=== PATIENT | female | born 1995 | race Caucasian/White ===

== ENCOUNTER 2017-04-16 15:18 | Emergency (ER) | payer SELFPAY ==
--- NOTE | 2017-04-16 15:32 | UC ---
Knee Pain HPI - HPI Summary HPI Summary: Pt presents with right knee pain, bruising, and swelling. She tells me that yesterday she was at a farm animal auction and one of the day escaped it's containment and headbutted her in the front of her right knee. She flipped over the animal and landed on her backside. She had immediate pain, but was able to walk. She took ibuprofen later that night with mild relief. She is here today with increased pain, swelling, and bruising. Denies fever, chills, numbness, tingling, or loss of sensation. - History of Current Complaint Stated Complaint: KNEE INJURY Hx Obtained From: Patient Hx Last Menstrual Period: 04/03/14 ?: No Onset/Duration: Sudden Onset Severity Initially: Moderate Severity Currently: Moderate Pain Intensity: 2 Pain Scale Used: 0-10 Numeric Character: Dull, Aching, Throbbing, Stiffness Aggravating Factor(s): Movement, Weight Bearing Alleviating Factor(s): Rest Associated Signs And Symptoms: Positive: Swelling, Bruising - Allergies/Home Medications Allergies/Adverse Reactions: Allergies Allergy/AdvReac Type Severity Reaction Status Date / Time strawberries Allergy Severe Hives Uncoded 04/16/17 15:41 coconut Allergy Hives Uncoded 04/16/17 15:41 PMH/Surg Hx/FS Hx/Imm Hx Previously Healthy: Yes Other History Of: Negative For: Anticoagulant Therapy - Surgical History Surgical History: None - Family History Known Family History: Positive: Unknown - Social History Occupation: Employed Full-time Lives: With Family Alcohol Use: None Substance Use Type: None Smoking Status (MU): Former Smoker Have You Smoked in the Last Year: No - Immunization History Most Recent Influenza Vaccination: none Most Recent Tetanus Shot: received as child Most Recent Pneumonia Vaccination: none Vaccination Up to Date: Yes Review of Systems Constitutional: Negative Skin: Bruising - Right knee Respiratory: Negative Cardiovascular: Negative Gastrointestinal: Negative Motor: Negative Neurovascular: Negative Musculoskeletal: Decreased ROM - Right knee, Edema - Right knee, Other: - Pain right knee Neurological: Negative Psychological: Negative All Other Systems Reviewed And Are Negative: Yes Physical Exam Triage Information Reviewed: Yes Appearance: Well-Appearing, Well-Nourished Vital Signs Reviewed: Yes Neck: Positive: Supple, Nontender, No Lymphadenopathy, Other: - FROM Cardiovascular: Positive: RRR, No Murmur, Pulses Normal, Brisk Capillary Refill Musculoskeletal: Positive: Strength Limited @ - Right knee due to pain., ROM Limited @ - Right knee due to pain. She is able to flex and extend fully, but with significant pain at full extension/flexion., Edema @ - Right knee moderate generalized around the knee joint., Other: - Right knee TTP all around the joint , most painful at the anterior inferior aspect of the joint line and posteriorly. No obvious bony deformities. No patella apprehension. Negative Alexandra, A/P drawer, Karo, and varus/valgus stress. FROM right hip and ankle without pain. Neurological: Positive: Alert, Other: - L3-S1 sensations intact. Psychological: Positive: Age Appropriate Behavior Skin: Positive: Other - Ecchymosis at the medial and lateral right knee joint line. No open wounds or lacerations. Knee Pain Course/Dx - Course Course Of Treatment: Knee XR: IMPRESSION: SMALL JOINT EFFUSION, NO FRACTURE IS SEEN. iSTOP checked and ok'd. Prior to imaging study, a test was offered and potential risks to a fetus were discussed - pt declined test. Toradol IM in clinic today. Rx for norco 3 days. Knee immobilizer and f/ u with orthopedics this week regarding traumatic impact injury. - Differential Dx/Diagnosis Differential Diagnosis/HQI/PQRI: Contusion, Dislocation, Fracture (Closed), Sprain, Strain Provider Diagnoses: Right knee contusion Discharge - Discharge Plan Condition: Stable Disposition: HOME Prescriptions: Hydrocodone-Acetaminophen [[place] 5-325 mg] 1 tab PO Q6HR PRN #12 tab MDD 4 PRN Reason: Pain Patient Education Materials: Knee Pain (ED) Forms: *Work Release Referrals: Krysten Paredes RN [Primary Care Provider] - Lars Haines MD [Medical Doctor] - As Soon As Possible Additional Instructions: If you develop a fever, SOB, chest pain, new or worsening symptoms - please call your PCP or go to the ED. 1) Rest, Ice, and Elevate your knee as much as possible over the next 2-3 days. 2) Please call orthopedics at the number below to schedule a follow up appointment for sometime this week. 3) When active or when walking, please be in the knee immobilizer. May remove the immobilizer when sleeping at night.
[2017-04-16 15:41] VITALS: BP 119/72
--- NOTE | 2017-04-16 16:01 | RAD ---
INDICATION: Right knee injury. TECHNIQUE: 4 views of the right knee were obtained. FINDINGS: The bones are in normal alignment. There is a small joint effusion present. No fracture is seen. Joint spaces appear maintained. IMPRESSION: SMALL JOINT EFFUSION, NO FRACTURE IS SEEN.
[2017-04-16] MEDS ORDERED: Ketorolac INJ* 30 MG/ML 1 ML VIAL IM ONE (16:11)
== END 2017-04-16 16:35 | disposition home or self-care (01) ==
LOC: UCEAST 15:18
DX: S80.01XA Contusion of right knee, initial encounter (principal); W55.32XA Struck by other hoof stock, initial encounter; Y92.89 Other specified places as the place of occurrence of the external cause; M25.461 Effusion, right knee; Z87.891 Personal history of nicotine dependence
CPT/HCPCS: 96372; 99213; G0463; J1885

== ENCOUNTER 2017-04-21 11:44 | Emergency (ER) | payer OTHER ==
[2017-04-21 13:03] VITALS: BP 105/56
--- NOTE | 2017-04-21 13:18 | UC ---
Knee Pain HPI - HPI Summary HPI Summary: Pt presents with continued right knee pain. I first saw the patient on 04/16 for her right knee injury. HPI from visit 04/16: Pt presents with right knee pain, bruising, and swelling. She tells me that yesterday she was at a farm animal auction and one of the day escaped it's containment and headbutted her in the front of her right knee. She flipped over the animal and landed on her backside. She had immediate pain, but was able to walk. She took ibuprofen later that night with mild relief. She is here today with increased pain, swelling, and bruising. Denies fever, chills, numbness, tingling, or loss of sensation. Today: She tells me that she was able to see Orthopedics and they ordered an MRI , but due to her worker's comp - the MRI will likely not be scheduled until after [place]. According to her, ortho suspects ligament damage and want to keep her in the knee immobilizer until the MRI. She is doing well, but is having continued pain and difficulties sleeping due to pain. She wanted to speak to orthopedics about pain control, but she said the visit was so short and the provider did not give her the opportunity to do so. She is currently taking ibuprofen with minimal relief. - History of Current Complaint Chief Complaint: UCLowerExtremity Stated Complaint: KNEE INJURY Time Seen by Provider: 04/21/17 12:57 Hx Obtained From: Patient Hx Last Menstrual Period: 04/03/14 Onset/Duration: Still Present Severity Initially: Severe Severity Currently: Moderate Pain Intensity: 7 Pain Scale Used: 0-10 Numeric Character: Dull, Aching, Throbbing, Stiffness Able to Bear Weight: No - Allergies/Home Medications Allergies/Adverse Reactions: Allergies Allergy/AdvReac Type Severity Reaction Status Date / Time strawberries Allergy Severe Hives Uncoded 04/21/17 13:03 coconut Allergy Hives Uncoded 04/21/17 13:03 PMH/Surg Hx/FS Hx/Imm Hx Previously Healthy: Yes Other History Of: Negative For: Anticoagulant Therapy - Surgical History Surgical History: None Surgery Procedure, Year, and Place: c - section 2015 - Family History Known Family History: Positive: Unknown - Social History Alcohol Use: None Substance Use Type: None Smoking Status (MU): Former Smoker Have You Smoked in the Last Year: No - Immunization History Most Recent Influenza Vaccination: none Most Recent Tetanus Shot: received as child Most Recent Pneumonia Vaccination: none Vaccination Up to Date: Yes Review of Systems Constitutional: Negative Skin: Negative Respiratory: Negative Cardiovascular: Negative Musculoskeletal: Decreased ROM - Right knee. Pt is in knee immobilizer., Other: - Right knee pain Neurological: Negative Psychological: Negative All Other Systems Reviewed And Are Negative: Yes Physical Exam Triage Information Reviewed: Yes Appearance: Well-Appearing, Well-Nourished Vital Signs: Initial Vital Signs Temp 98.6 F 04/21/17 12:57 Pulse 83 04/21/17 12:57 Resp 18 04/21/17 12:57 BP 105/56 04/21/17 12:57 Pulse Ox 98 04/21/17 12:57 Vital Signs Reviewed: Yes Respiratory: Positive: Chest non-tender, Lungs clear, Normal breath sounds, No respiratory distress, No accessory muscle use Cardiovascular: Positive: RRR, No Murmur, Pulses Normal, Brisk Capillary Refill - Right LE Musculoskeletal: Positive: No Edema, ROM Limited @ - Right knee due to knee immobilizer, Other: - Right knee pain posterior and anterior joint line. Unable to perform specialized tests due to knee immobilizer. Neurological: Positive: Alert, Other: - Sensations intact b/l LEs Knee Pain Course/Dx - Course Course Of Treatment: Right knee pain s/p trauma. She is followed by orthopedics and has an upcoming MRI. Continued pain - discussed no more narcotics. Will try diclofenac during the day and flexeril at bedtime. - Differential Dx/Diagnosis Differential Diagnosis/HQI/PQRI: Contusion, Internal Derangement Of Knee, Sprain , Strain Provider Diagnoses: Right knee pain s/p trauma Discharge - Discharge Plan Condition: Stable Disposition: HOME Prescriptions: Cyclobenzaprine HCl [Flexeril 5 mg (NF)] 5 mg PO BEDTIME PRN #7 tab PRN Reason: Pain Diclofenac Sodium EC TAB* [Voltaren EC TAB*] 50 mg PO TID PRN #60 tab.ec PRN Reason: Pain Patient Education Materials: Knee Immobilizer (ED) Referrals: Krysten Paredes RN [Primary Care Provider] - Additional Instructions: If you develop a fever, SOB, chest pain, new or worsening symptoms - please call your PCP or go to the ED. 1) Please keep scheduled follow ups with Orthopedics and your MRI for continued evaluation and treatment.
[2017-04-21] MEDS ORDERED: Ketorolac INJ* 30 MG/ML 1 ML VIAL IM ONE (13:34)
== END 2017-04-21 14:09 | disposition home or self-care (01) ==
LOC: UCEAST 11:44
DX: M25.561 Pain in right knee (principal); W55.32XA Struck by other hoof stock, initial encounter; Y93.89 Activity, other specified; Y92.79 Other farm location as the place of occurrence of the external cause; Y99.9 Unspecified external cause status; Z87.892 Personal history of anaphylaxis
CPT/HCPCS: 96372; 99212; G0463; J1885

== ENCOUNTER 2017-05-30 03:13 | Emergency (ER) | payer SELFPAY ==
[2017-05-30] MEDS ORDERED: Morphine INJ* 4 MG/ML 1 ML CARPUJECT IV ONE (03:55)
[2017-05-30] MEDS ORDERED: Ondansetron INJ* 2 MG/ML VIAL IV ONE (03:55)
[2017-05-30] MEDS ORDERED: NS 0.9% 1000 ML* 1,000 ML IV ONE (03:55)
[2017-05-30 04:20] LABS: ABS Basophils 0 10^3/ul (0-0.2); ABS Eosinophils 0.1 10^3/ul (0-0.6); ABS Lymphocytes 1.3 10^3/ul (1.0-4.8); ABS Monocytes 0.8 10^3/ul (0-0.8); ABS Neutrophils 5.1 10^3/ul (1.5-7.7); ABS Nucleated RBC 0 10^3/ul; Eosinophil % 0.8 % (0-6); Hematocrit 36 % (35-47); Hemoglobin 12.2 g/dl (12.0-16.0); Lymphocyte % 17.7 % (25-47); Mean Corpuscular HGB Conc 34 g/dl (31-36); Mean Corpuscular Hemoglobin 30 pg (27-31); Mean Corpuscular Volume 89 fL (80-97); Mean Platelet Volume 8 um3 (7.4-10.4); Nucleated Red Blood Cells % 0; Platelet Count 207 10^3/ul (150-450); Red Blood Count 4.07 10^6/ul (4.0-5.4); Red Cell Distribution Width 17 % (10.5-15); White Blood Count 7.3 10^3/ul (3.5-10.8)
[2017-05-30 05:03] LABS: Urine Appearance Cloudy; Urine Blood Negative (Negative); Urine Color Yellow; Urine Ketones Negative (Negative); Urine Protein Negative (Negative); Urine Specific Gravity 1.014 (1.010-1.030); Urine Urobilinogen Negative (Negative)
[2017-05-30 05:26] LABS: EGFR Non-African American 99.1 (>60)
[2017-05-30] MEDS ORDERED: Iohexol 300* (CONTRAST) 10 ML SDV IV ONE (05:31)
--- NOTE | 2017-05-30 06:48 | ED ---
Kunal Kemp Julia, scribed for Fernando Alexander MD on 05/30/17 at 0344 . Abdominal Pain/Female - HPI Summary HPI Summary: This patient is a 22 year [facility] F [facility] constant worsening sharp stabbing R sided abdominal pain since 8:00 05/29/17. Pt reports nausea and vomiting. Patient denies vaginal symptoms. The patient rates the pain 8/10 in severity. Symptoms aggravated by movement and coughing. Pts LNMP was 05/06/17. - History of Current Complaint Chief Complaint: EDAbdPain Stated Complaint: ABD PAIN Time Seen by Provider: 05/30/17 03:35 Hx Obtained From: Patient Hx Last Menstrual Period: 05/06/17 Onset/Duration: Gradual Onset, Lasting Days Timing: Constant Pain Intensity: 8 Pain Scale Used: 0-10 Numeric Location: Discrete At: RUQ, Discrete At: RLQ Character: Sharp Aggravating Factor(s): Movement, Other: Associated Signs and Symptoms: Positive: Nausea, Vomiting. Negative: Vaginal Discharge Allergies/Adverse Reactions: Allergies Allergy/AdvReac Type Severity Reaction Status Date / Time strawberries Allergy Severe Hives Uncoded 05/30/17 03:18 coconut Allergy Hives Uncoded 05/30/17 03:18 PMH/Surg Hx/FS Hx/Imm Hx Endocrine/Hematology History: Denies: Hx Anticoagulant Therapy, Hx Diabetes, Hx Thyroid Disease Cardiovascular History: Reports: Other Cardiovascular Problems/Disorders - hr irr Denies: Hx Hypertension Respiratory History: Reports: Other Respiratory Problems/Disorders - hx of previous anaphylaxis Denies: Hx Asthma, Hx Chronic Obstructive Pulmonary Disease (COPD) GI History: Denies: Hx Ulcer Sensory History: Reports: Hx Contacts or Glasses Opthamlomology History: Reports: Hx Contacts or Glasses - Surgical History Surgery Procedure, Year, and Place: c - section 2015 Infectious Disease History: No Infectious Disease History: Denies: Hx Clostridium Difficile, Hx Hepatitis, Hx Human Immunodeficiency Virus (HIV), Hx of Known/Suspected MRSA, Hx Shingles, Hx Tuberculosis, Hx Known/ Suspected VRE, Hx Known/Suspected VRSA, History Other Infectious Disease, Traveled Outside the [place] in Last 30 Days - Family History Known Family History: Positive: Diabetes - borderline mother, Other - negative CA - Social History Alcohol Use: None Substance Use Type: Reports: None Smoking Status (MU): Former Smoker Have You Smoked in the Last Year: No Review of Systems Positive: Abdominal Pain, Vomiting, Nausea Positive: no symptoms reported All Other Systems Reviewed And Are Negative: Yes Physical Exam - Summary Physical Exam Summary: Appearance: Well appearing, no pain distress Skin: warm, dry, reflects adequate perfusion Head/face: normal Eyes: EOMI, GEOVANNA ENT: normal Neck: supple, non-tender Respiratory: CTA, breath sounds present Cardiovascular: RRR, pulses symmetrical Abdomen: non-tender, soft, positive [place] Bowel: present Musculoskeletal: strength/ROM intact, positive psoas, positive obturator Neuro: normal, sensory motor intact, A&Ox3 Triage Information Reviewed: Yes Vital Signs On Initial Exam: Initial Vitals Temp Pulse Resp BP Pulse Ox 98.0 F 88 16 121/72 98 05/30/17 03:15 05/30/17 03:15 05/30/17 03:15 05/30/17 03:15 05/30/17 03:15 Vital Signs Reviewed: Yes Diagnostics - Vital Signs Vital Signs Temp Pulse Resp BP Pulse Ox 05/30/17 03:15 98.0 F 88 16 121/72 98 - Laboratory Lab Results: Lab Results 05/30/17 05/30/17 05/30/17 Range/Units 04:01 04:01 04:01 WBC 7.3 (3.5-10.8) 10^3/ul RBC 4.07 (4.0-5.4) 10^6/ul Hgb 12.2 (12.0-16.0) g/dl Hct 36 (35-47) % MCV 89 (80-97) fL MCH 30 (27-31) pg MCHC 34 (31-36) g/dl RDW 17 H (10.5-15) % Plt Count 207 (150-450) 10^3/ul MPV 8 (7.4-10.4) um3 Neut % (Auto) 70.4 (38-83) % Lymph % (Auto) 17.7 L (25-47) % Kern % (Auto) 10.5 H (1-9) % Eos % (Auto) 0.8 (0-6) % Baso % (Auto) 0.6 (0-2) % Absolute Neuts (auto) 5.1 (1.5-7.7) 10^3/ul Absolute Lymphs (auto) 1.3 (1.0-4.8) 10^3/ul Absolute Monos (auto) 0.8 (0-0.8) 10^3/ul Absolute Eos (auto) 0.1 (0-0.6) 10^3/ul Absolute Basos (auto) 0 (0-0.2) 10^3/ul Absolute Nucleated RBC 0 10^3/ul Nucleated RBC % 0 Sodium 135 (133-145) mmol/L Potassium 3.9 (3.5-5.0) mmol/L Chloride 105 (101-111) mmol/L Carbon Dioxide 22 (22-32) mmol/L Anion Gap 8 (2-11) mmol/L BUN 20 (6-24) mg/dL Creatinine 0.74 (0.51-0.95) mg/dL Est GFR ( Amer) 127.4 (>60) Est GFR (Non-Af Amer) 99.1 (>60) BUN/Creatinine Ratio 27.0 H (8-20) Glucose 89 (70-100) mg/dL Lactic Acid 0.4 L (0.5-2.0) mmol/L Calcium 9.3 (8.6-10.3) mg/dL Total Bilirubin 0.30 (0.2-1.0) mg/dL AST 14 (13-39) U/L ALT 11 (7-52) U/L Alkaline Phosphatase 32 L (34-104) U/L C-Reactive Protein 12.01 H (< 5.00) mg/L Total Protein 6.9 (6.4-8.9) g/dL Albumin 3.9 (3.2-5.2) g/dL Globulin 3.0 (2-4) g/dL Albumin/Globulin Ratio 1.3 (1-3) Lipase 13 (11.0-82.0) U/L Beta HCG, Quant < 0.60 mIU/mL Urine Color Urine Appearance Urine pH (5-9) Ur Specific [place] (1.010-1.030) Urine Protein (Negative) Urine Ketones (Negative) Urine Blood (Negative) Urine Nitrate (Negative) Urine Bilirubin (Negative) Urine Urobilinogen (Negative) Ur Leukocyte Esterase (Negative) Urine WBC (Auto) (Absent) Urine RBC (Auto) (Absent) Ur Squamous Epith Cells (Absent) Urine Bacteria (Absent) Urine Glucose (Negative) 05/30/17 Range/Units 04:35 WBC (3.5-10.8) 10^3/ul RBC (4.0-5.4) 10^6/ul Hgb (12.0-16.0) g/dl Hct (35-47) % MCV (80-97) fL MCH (27-31) pg MCHC (31-36) g/dl RDW (10.5-15) % Plt Count (150-450) 10^3/ul MPV (7.4-10.4) um3 Neut % (Auto) (38-83) % Lymph % (Auto) (25-47) % Kern % (Auto) (1-9) % Eos % (Auto) (0-6) % Baso % (Auto) (0-2) % Absolute Neuts (auto) (1.5-7.7) 10^3/ul Absolute Lymphs (auto) (1.0-4.8) 10^3/ul Absolute Monos (auto) (0-0.8) 10^3/ul Absolute Eos (auto) (0-0.6) 10^3/ul Absolute Basos (auto) (0-0.2) 10^3/ul Absolute Nucleated RBC 10^3/ul Nucleated RBC % Sodium (133-145) mmol/L Potassium (3.5-5.0) mmol/L Chloride (101-111) mmol/L Carbon Dioxide (22-32) mmol/L Anion Gap (2-11) mmol/L BUN (6-24) mg/dL Creatinine (0.51-0.95) mg/dL Est GFR ( Amer) (>60) Est GFR (Non-Af Amer) (>60) BUN/Creatinine Ratio (8-20) Glucose (70-100) mg/dL Lactic Acid (0.5-2.0) mmol/L Calcium (8.6-10.3) mg/dL Total Bilirubin (0.2-1.0) mg/dL AST (13-39) U/L ALT (7-52) U/L Alkaline Phosphatase (34-104) U/L C-Reactive Protein (< 5.00) mg/L Total Protein (6.4-8.9) g/dL Albumin (3.2-5.2) g/dL Globulin (2-4) g/dL Albumin/Globulin Ratio (1-3) Lipase (11.0-82.0) U/L Beta HCG, Quant mIU/mL Urine Color Yellow Urine Appearance Cloudy Urine pH 6.0 (5-9) Ur Specific [place] 1.014 (1.010-1.030) Urine Protein Negative (Negative) Urine Ketones Negative (Negative) Urine Blood Negative (Negative) Urine Nitrate Negative (Negative) Urine Bilirubin Negative (Negative) Urine Urobilinogen Negative (Negative) Ur Leukocyte Esterase 1+ H (Negative) Urine WBC (Auto) 3+(>20/hpf) H (Absent) Urine RBC (Auto) Trace(0-2/hpf) (Absent) Ur Squamous Epith Cells Present H (Absent) Urine Bacteria Absent (Absent) Urine Glucose Negative (Negative) Result Diagrams: 05/30/17 04:01 05/30/17 04:01 Lab Statement: Any lab studies that have been ordered have been reviewed, and results considered in the medical decision making process. - CT A/P CT Interpretation Completed By: Radiologist - Unremarkable except mild spleen enlargement. ED Physician has reviewed this report. Re-Evaluation - Re-Evaluation 1 Re-Evaluation Time: 06:41 Change: Improved - Pain is gone. Re examination reveals no tenderness Comment: pain gone, on reexam there is no tenderness. Abdominal Pain Fem Course/Dx - Course Course Of Treatment: Patient presents with gradually worsening R sided abdominal pain, nausea and vomiting. A A/P CT reveals no acute findings except mild spleen enlargement. Labs are unremarkable. Pt given Morphine, Zofran, and IV fluids. Upon second examination pain has resolved with no abdominal tenderness. She moves about freely. On my eval of the CT there is some term ileum fluids adjacent to a lot of stool in the prox large bowel. F/U closely PMD , tx symptomatically. No pelvic pain. - Diagnoses Differential Diagnosis: Positive: Appendicitis, Irritable Bowel Syndrome, Ovarian Cyst, Other - IBD Provider Diagnoses: Acute abdominal pain in right lower quadrant, Acute constipation Discharge - Discharge Plan Condition: Good Disposition: HOME Prescriptions: Bisacodyl SUPP* [Dulcolax Supp*] 10 mg PO BID PRN #10 supp PRN Reason: Constipation Hyoscyamine TAB* [Anaspaz 0.125 MG TAB*] 0.125 mg PO Q6H PRN #20 tab PRN Reason: cramping Ondansetron HCl [Zofran 4 MG TAB] 4 mg PO TID PRN #12 tab PRN Reason: Nausea Polyethylene Glycol 3350* [Miralax*] 17 gm PO TID #20 packet Patient Education Materials: Constipation (ED), Acute Abdominal Pain (ED) Referrals: Adolph DALY LARDER COOKKrysten [Primary Care Provider] - Additional Instructions: Drink plenty of fluids, high fiber diet. Return with fever, increased pain, vomiting or other concerns as discussed. Call your doctor to follow up today. The documentation as recorded by the Kunal longoria Julia accurately reflects the service I personally performed and the decisions made by me, Fernando Alexander MD.
[2017-05-30 07:05] VITALS: BP 102/51
--- NOTE | 2017-05-30 07:51 | RAD ---
CLINICAL HISTORY: Right lower quadrant pain COMPARISON: April 11, 2014 TECHNIQUE: Multiple contiguous axial CT scans were obtained of the abdomen and pelvis after the administration of intravenous contrast. Coronal and sagittal multiplanar reformations are submitted for review. Oral contrast was not administered. Delayed images were obtained through the abdomen and pelvis. FINDINGS: LUNG BASES: The lung bases are clear. LIVER: There is focal fatty infiltration along the ligamentum teres hepatis. BILE DUCTS: There is no intrahepatic or extrahepatic biliary dilatation. GALLBLADDER: The gallbladder is normal, without pericholecystic inflammatory change. PANCREAS: The pancreas is normal, without mass or ductal dilatation. SPLEEN: The spleen measures up to 14.6 cm in long axis. UPPER GI TRACT: Evaluation of the gastrointestinal tract is limited by incomplete gastric distention. The upper GI tract is unremarkable. SMALL BOWEL AND MESENTERY: The small bowel is normal in contour, course, and caliber. There is no obstruction or dilatation. COLON: The colon is normal in contour, course, caliber. There is no pericolonic inflammatory change. There is a tubular, vermiform, hollow viscus that is blind ending, and originates from the cecum, consistent with a normal appendix. There is no periappendiceal inflammatory change. This is best seen on axial images 61 through 66. ADRENALS: Normal bilaterally. KIDNEYS: The kidneys are normal in shape, size, contour, and axis. There is no hydronephrosis or nephrolithiasis. BLADDER: The bladder is smooth in contour. PELVIC ORGANS: The uterus and adnexa are grossly normal for technique. AORTA: The aorta is normal. IVC: Unremarkable LYMPH NODES: There is no lymphadenopathy by size criteria. ABDOMINAL WALL: There is no evidence for abdominal wall hernia. BONES AND SOFT TISSUES: The bones and soft tissues are unremarkable. OTHER: None IMPRESSION: 1. NORMAL APPENDIX. 2. MILD SPLENOMEGALY. 3. NO ACUTE CT PATHOLOGY OF THE VISUALIZED ABDOMEN OR PELVIS.
--- NOTE | 2017-06-01 10:50 | PN ---
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 Aye Coel PA-C
== END 2017-05-30 07:07 | disposition home or self-care (01) ==
LOC: ED 03:13
DX: R10.31 Right lower quadrant pain (principal); K59.00 Constipation, unspecified; N39.0 Urinary tract infection, site not specified; B95.7 Other staphylococcus as the cause of diseases classified elsewhere; Z87.891 Personal history of nicotine dependence
CPT/HCPCS: 36415; 74177; 80053; 81003; 81015; 83605; 83690; 84702; 85025; 86140; 87077; 87086; 96361; 96365; 96375; 99284; J2270; J2405; Q9967

== ENCOUNTER 2017-07-18 18:27 | Emergency (ER) | payer SELFPAY ==
[2017-07-18 18:45] VITALS: BP 122/71
--- NOTE | 2017-07-18 19:43 | UC ---
Skin Complaint HPI - HPI Summary HPI Summary: 22 yo WF c/o left inner upper thigh vesicular skin lesion associated with fatigue, pain and tingling on before the lesions were noted this morning - History of Current Complaint Chief Complaint: UCSkin Time Seen by Provider: 07/18/17 19:02 Stated Complaint: SKIN COMPLAINT Hx Obtained From: Patient Hx Last Menstrual Period: 2 wks ago Onset/Duration: Sudden Onset Skin Exposure Onset/Duration: Days Ago Onset Severity: Severe Current Severity: Moderate Pain Intensity: 8 - Allergy/Home Medications Allergies/Adverse Reactions: Allergies Allergy/AdvReac Type Severity Reaction Status Date / Time strawberries Allergy Severe Hives Uncoded 07/18/17 18:45 coconut Allergy Hives Uncoded 07/18/17 18:45 Review of Systems Constitutional: Negative Skin: Rash Eyes: Negative ENT: Negative Respiratory: Negative Cardiovascular: Negative Gastrointestinal: Negative Genitourinary: Negative Motor: Negative Neurovascular: Negative Musculoskeletal: Negative Neurological: Negative Psychological: Negative All Other Systems Reviewed And Are Negative: Yes PMH/Surg Hx/FS Hx/Imm Hx Previously Healthy: Yes Other History Of: Negative For: Anticoagulant Therapy - Surgical History Surgical History: Yes Surgery Procedure, Year, and Place: c - section 2015 - Family History Known Family History: Positive: Unknown, Diabetes - borderline mother, Other - negative [place] - Social History Alcohol Use: None Substance Use Type: None Smoking Status (MU): Light Every Day Tobacco Smoker Have You Smoked in the Last Year: No - Immunization History Most Recent Influenza Vaccination: none Most Recent Tetanus Shot: received as child Most Recent Pneumonia Vaccination: none Vaccination Up to Date: Yes Physical Exam Triage Information Reviewed: Yes Vital Signs: Initial Vital Signs Temp 37.2 C 07/18/17 18:42 Pulse 106 07/18/17 18:42 Resp 12 07/18/17 18:42 BP 122/71 07/18/17 18:42 Pulse Ox 100 07/18/17 18:42 Eye Exam: Normal ENT Exam: Normal Dental Exam: Normal Neck exam: Normal Neck: Positive: 1 Respiratory Exam: Normal Cardiovascular Exam: Normal Abdominal Exam: Normal Musculoskeletal Exam: Normal Neurological Exam: Normal Psychological Exam: Normal Skin: Positive: significant lesion(s) - small group of 1x1cm vesicular lesion on left upper inner thigh along L2 dermatome Course/Dx - Diagnoses Provider Diagnoses: herpes zoster Discharge - Discharge Plan Condition: Stable Disposition: HOME Prescriptions: ValACYclovir (*) [Valtrex 1 GM(*)] 1 gm PO TID 7 Days #21 tab Patient Education Materials: Arlene (ED) Forms: *Work Release Referrals: Adolph DALY VET TECHKrysten [Primary Care Provider] - Additional Instructions: Take medication as directed Hydrate Tylenol or motrin for pain
== END 2017-07-18 19:57 | disposition home or self-care (01) ==
LOC: UCEAST 18:27
DX: B02.9 Zoster without complications (principal); F17.200 Nicotine dependence, unspecified, uncomplicated
CPT/HCPCS: 99212; G0463

== ENCOUNTER 2017-11-24 17:15 | Emergency (ER) | payer SELFPAY ==
[2017-11-24 17:52] VITALS: BP 118/82
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
[2017-11-24] MEDS ORDERED: NS 0.9% 1000 ML* 1,000 ML IV ONE (18:33)
== END 2017-11-24 18:58 | disposition short-term general hospital (02) ==
LOC: UCEAST 17:15
DX: R10.12 Left upper quadrant pain (principal); M54.2 Cervicalgia; M54.6 Pain in thoracic spine; Z88.4 Allergy status to anesthetic agent; Z91.018 Allergy to other foods; F17.200 Nicotine dependence, unspecified, uncomplicated
CPT/HCPCS: 96360; 99213; G0463

== ENCOUNTER 2017-11-24 19:36 | Emergency (ER) | payer SELFPAY ==
[2017-11-24] MEDS ORDERED: NS 0.9% 1000 ML* 1,000 ML IV ONE (19:57)
[2017-11-24] MEDS ORDERED: Iodixanol* (CONTRAST) 320 MG/ML 100 ML SDV IV ONE (20:12)
[2017-11-24 20:20] LABS: ABS Basophils 0 10^3/ul (0-0.2); ABS Eosinophils 0.1 10^3/ul (0-0.6); ABS Lymphocytes 1.6 10^3/ul (1.0-4.8); ABS Monocytes 0.4 10^3/ul (0-0.8); ABS Neutrophils 2.4 10^3/ul (1.5-7.7); ABS Nucleated RBC 0 10^3/ul; Eosinophil % 1.4 % (0-6); Hematocrit 36 % (35-47); Hemoglobin 12.2 g/dl (12.0-16.0); Lymphocyte % 35.7 % (25-47); Mean Corpuscular HGB Conc 34 g/dl (31-36); Mean Corpuscular Hemoglobin 31 pg (27-31); Mean Corpuscular Volume 90 fL (80-97); Mean Platelet Volume 7.9 um3 (7.4-10.4); Nucleated Red Blood Cells % 0.1; Platelet Count 224 10^3/ul (150-450); Red Blood Count 3.98 10^6/ul (4.00-5.40); Red Cell Distribution Width 16 % (10.5-15); White Blood Count 4.5 10^3/ul (3.5-10.8)
[2017-11-24 20:30] LABS: EGFR Non-African American 111.1 (>60)
[2017-11-24] MEDS ORDERED: Potassium Chlor TAB* 20 MEQ TAB.ER PO ONE (20:51)
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
[2017-11-24] MEDS ORDERED: Ketorolac INJ* 30 MG/ML 1 ML VIAL IV PUSH ONE (21:06)
[2017-11-24 21:33] VITALS: BP 120/78
--- NOTE | 2017-11-25 07:38 | RAD ---
INDICATION: Headaches. Possible intracranial injury COMPARISON: None TECHNIQUE: Noncontrast axial source images were acquired from the skull base to the vertex. FINDINGS: Ventricles/sulci: The ventricles and cisterns are normal in size and configuration for age. Brain parenchyma: There is no focal parenchymal finding, evidence of intracranial mass, or intracranial mass effect. Intracranial hemorrhage:None. Extra-axial spaces: There are no abnormal extra axial fluid collections or evidence of extra-axial mass. Calvarium: There is no calvarial fracture or other calvarial abnormality. Scalp: There is no evidence of scalp or extracalvarial soft tissue abnormality. Paranasal sinuses/mastoid: The paranasal sinuses and mastoid air cells are clear. Other: None. IMPRESSION: NEGATIVE EXAMINATION
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
== END 2017-11-24 21:32 | disposition home or self-care (01) ==
LOC: ED 19:36
DX: R51 Headache (principal); R07.9 Chest pain, unspecified; R10.9 Unspecified abdominal pain; F17.210 Nicotine dependence, cigarettes, uncomplicated; M54.9 Dorsalgia, unspecified; M25.519 Pain in unspecified shoulder; V89.0XXA Person injured in unspecified motor-vehicle accident, nontraffic, initial encounter; Y92.9 Unspecified place or not applicable
CPT/HCPCS: 36415; 70450; 71260; 72125; 72128; 74177; 80053; 80320; 83605; 84702; 85025; 96374; 99283; G0480; J1885; Q9967

== ENCOUNTER 2018-06-15 01:21 | Emergency (ER) | payer MEDICAID, OTHER ==
[2018-06-15] MEDS ORDERED: LORazepam INJ* 2 MG/ML 1 ML VIAL ONE (01:31)
[2018-06-15] MEDS ORDERED: NS 0.9% 1000 ML** 1,000 ML IV ONE (01:34)
[2018-06-15] MEDS ORDERED: LORazepam INJ* 2 MG/ML 1 ML VIAL IV PUSH ONE (01:35)
--- NOTE | 2018-06-15 01:38 | ED ---
Substance Abuse/Use - HPI Summary HPI Summary: This patient is a 23 year old F presenting to [facility] accompanied by her fiance and mother with a chief complaint of alcohol intoxication since just [employer]. Her fianc believes that she could have other, unknown drugs in her system. The patients valery says she had 6-8 beers and 6 jello shots. The patient is moving her limbs about and frothing at the mouth while in the ED. She also had an episode of emesis. The patient keeps yelling to her mother loudly. She just got her prescription for Xanax in the last week. 02 sat at 98 in the room. PMHX anxiety, bipolar. RX Xanax .25, Gabapentin. - History Of Current Complaint Chief Complaint: EDSubstanceAbuse Stated Complaint: ETOH Hx Obtained From: Patient, Family/Filler Feeder - mother, fiance Hx From Patient Unobtainable Due To: Other - drunk Hx Last Menstrual Period: November 12, 2017 Onset/Duration of Drug/ETOH Abuse: Hours Ingestion History: Type/Name Of Drug - alcohol Overdose Characteristics: Oral Character: Frustrated Associated Signs And Symptoms: Confused, Drooling - Allergies/Home Medications Allergies/Adverse Reactions: Allergies Allergy/AdvReac Type Severity Reaction Status Date / Time strawberries Allergy Severe Hives Uncoded 06/15/18 01:23 coconut Allergy Hives Uncoded 06/15/18 01:23 PMH/Surg Hx/FS Hx/Imm Hx Endocrine/Hematology History: Denies: Hx Anticoagulant Therapy, Hx Diabetes, Hx Thyroid Disease Cardiovascular History: Reports: Other Cardiovascular Problems/Disorders - hr irr Denies: Hx Hypertension Respiratory History: Reports: Other Respiratory Problems/Disorders - hx of previous anaphylaxis Denies: Hx Asthma, Hx Chronic Obstructive Pulmonary Disease (COPD) GI History: Denies: Hx Ulcer History: Denies: Hx Dialysis, Hx Renal Disease Sensory History: Reports: Hx Contacts or Glasses Opthamlomology History: Reports: Hx Contacts or Glasses Psychiatric History: Reports: Hx Anxiety, Hx Bipolar Disorder - Surgical History Surgery Procedure, Year, and Place: c - section 2015 Infectious Disease History: No Infectious Disease History: Denies: Hx Clostridium Difficile, Hx Hepatitis, Hx Human Immunodeficiency Virus (HIV), Hx of Known/Suspected MRSA, Hx Shingles, Hx Tuberculosis, Hx Known/ Suspected VRE, Hx Known/Suspected VRSA, History Other Infectious Disease, Traveled Outside the US in Last 30 Days - Family History Known Family History: Positive: Diabetes - borderline mother, Other - negative CA - Social History Alcohol Use: Occasionally Alcohol Amount: Socially Substance Use Type: Reports: None Smoking Status (MU): Light Every Day Tobacco Smoker Have You Smoked in the Last Year: No Review of Systems Positive: Other - frothing Positive: Vomiting Positive: Other - frustrated All Other Systems Reviewed And Are Negative: Yes Physical Exam - Summary Physical Exam Summary: VITAL SIGNS: Reviewed. GENERAL: Patient is a well-developed and nourished female who is lying comfortable in the stretcher. Patient is not in any acute respiratory distress. The patient is agitated, dry heaving, and has alcohol on her breath. HEAD AND FACE: No signs of trauma. No ecchymosis, hematomas or skull depressions. No sinus tenderness. EYES: PERRLA, EOMI x 2, No injected conjunctiva, no nystagmus. EARS: Hearing grossly intact. Ear canals and tympanic membranes are within normal limits. MOUTH: Oropharynx within normal limits. NECK: Supple, trachea is midline, no adenopathy, no JVD, no carotid bruit, no c- spine tenderness, neck with full ROM. CHEST: Symmetric, no tenderness at palpation LUNGS: Clear to auscultation bilaterally. No wheezing or crackles. CVS: Tachycardic, S1 and S2 present, no murmurs or gallops appreciated. ABDOMEN: Soft, non-tender. No signs of distention. No rebound no guarding, and no masses palpated. Bowel sounds are normal. EXTREMITIES: FROM in all major joints, no edema, no cyanosis or clubbing. NEURO: Alert and oriented x 3. No acute neurological deficits. Speech is normal and follows commands. SKIN: Dry and warm GCS: 15 Triage Information Reviewed: Yes Vital Signs On Initial Exam: Initial Vitals Temp Pulse Resp BP Pulse Ox 97.6 F 108 18 108/54 97 06/15/18 01:21 06/15/18 01:21 06/15/18 01:21 06/15/18 01:21 06/15/18 01:21 Vital Signs Reviewed: Yes Diagnostics - Vital Signs Vital Signs Temp Pulse Resp BP Pulse Ox 06/15/18 01:21 97.6 F 108 18 108/54 97 - Laboratory Result Diagrams: 06/15/18 01:49 06/15/18 01:48 Lab Statement: Any lab studies that have been ordered have been reviewed, and results considered in the medical decision making process. Re-Evaluation - Re-Evaluation First Eval Re-Evaluation Time: 01:44 Change: Improved Comment: The patient was given Atavan IV and is more cooperative now. Course/Dx - Course Course Of Treatment: This patient is a 23 year old F presenting to [facility] accompanied by her fiance and mother with a chief complaint of alcohol intoxication since just [employer]. Her fianc believes that she could have other, unknown drugs in her system. The patients valery says she had 6-8 beers and 6 jello shots. The patient is moving her limbs about and frothing at the mouth while in the ED. She also had an episode of emesis. Test results with no significant abnormalities. In the ED course the patient was given Lorazepam and IV fluids. Patient will be discharged with follow up from Dr. Farfan. The patient is agreeable with this plan. - Diagnoses Provider Diagnoses: Alcohol intoxication, Alcohol poisoning Discharge - Sign-Out/Discharge Documenting (check all that apply): Patient Departure - discharge Patient Received Moderate/Deep Sedation with Procedure: No - Discharge Plan Condition: Stable Disposition: HOME Patient Education Materials: Alcohol Intoxication (ED) Referrals: Krysten Paredes RN [Primary Care Provider] - 2 Days Additional Instructions: Follow up with your primary care physician in 1-3 days. RETURN TO THE EMERGENCY DEPARTMENT FOR CHANGING OR WORSENING SYMPTOMS. - Attestation Statements Document Initiated by Scribe: Yes Documenting Scribe: Andrea Zacarias Provider For Whom Scribe is Documenting (Include Credential): Drea Lunsford MD Scribe Attestation: Andrea Kemp, silvestreed for Drea Lunsford MD on 06/15/18 at 0426. Status of Scribe Document: Ready
[2018-06-15 01:59] LABS: ABS Basophils 0 10^3/ul (0-0.2); ABS Eosinophils 0 10^3/ul (0-0.6); ABS Lymphocytes 1.2 10^3/ul (1.0-4.8); ABS Monocytes 0.3 10^3/ul (0-0.8); ABS Neutrophils 3.4 10^3/ul (1.5-7.7); ABS Nucleated RBC 0 10^3/ul; Eosinophil % 0.5 %; Hematocrit 40 % (35-47); Hemoglobin 13.1 g/dl (12.0-16.0); Lymphocyte % 23.7 %; Mean Corpuscular HGB Conc 33 g/dl (31-36); Mean Corpuscular Hemoglobin 31 pg (27-31); Mean Corpuscular Volume 93 fL (80-97); Mean Platelet Volume 7.5 fL (7.4-10.4); Nucleated Red Blood Cells % 0; Platelet Count 256 10^3/ul (150-450); Red Blood Count 4.28 10^6/ul (4.00-5.40); Red Cell Distribution Width 14 % (10.5-15); White Blood Count 4.9 10^3/ul (3.5-10.8)
[2018-06-15 02:09] LABS: Urine Appearance Clear; Urine Bilirubin Negative (Negative); Urine Blood Negative (Negative); Urine Color Straw; Urine Glucose Negative (Negative); Urine Ketones Negative (Negative); Urine Nitrite Negative (Negative); Urine Protein Negative (Negative); Urine Specific Gravity 1.004 (1.010-1.030); Urine Urobilinogen Negative (Negative)
[2018-06-15 02:22] LABS: ALT 17 U/L (7-52); AST 20 U/L (13-39); Albumin 4.5 g/dL (3.2-5.2); Albumin/Globulin Ratio 1.7 (1-3); Alkaline Phosphatase 36 U/L (34-104); Anion Gap 8 mmol/L (2-11); BUN/Creatinine Ratio 13.7 (8-20); Blood Urea Nitrogen 10 mg/dL (6-24); CO2 Carbon Dioxide 26 mmol/L (22-32); Calcium 9.3 mg/dL (8.6-10.3); Chloride 110 mmol/L (101-111); Creatine Kinase 164 U/L (10-223); EGFR African American 120.6 (>60); EGFR Non-African American 99.7 (>60); Globulin 2.7 g/dL (2-4); Glucose 93 mg/dL (70-100); Potassium 3.7 mmol/L (3.5-5.0); Sodium 144 mmol/L (135-145); Total Protein 7.2 g/dL (6.4-8.9)
[2018-06-15 02:28] LABS: HCG Pregnancy < 0.60 mIU/mL
[2018-06-15 03:11] LABS: Barbiturates Urine Screen None Detected (None Detect); Benzodiazepine Urine Screen Presumptive Positive (None Detect); Urine Cannabinoids Screen Presumptive Positive (None Detect)
[2018-06-15 03:46] LABS: Alcohol 194 mg/dL (<10)
[2018-06-15 04:49] VITALS: BP 129/76
== END 2018-06-15 04:40 | disposition home or self-care (01) ==
LOC: ED 01:21
DX: F10.129 Alcohol abuse with intoxication, unspecified (principal); R11.10 Vomiting, unspecified; F17.210 Nicotine dependence, cigarettes, uncomplicated
CPT/HCPCS: 36415; 80053; 80307; 80320; 81003; 82550; 84702; 85025; 96374; 96375; 99283; G0480; J2060

== ENCOUNTER 2018-11-14 06:18 | Emergency (ER) | payer OTHER ==
--- NOTE | 2018-11-14 06:52 | ED ---
Back Pain - HPI Summary HPI Summary: Patient is a 23-year-old female who presents emergency department for ongoing diffuse back pain times several weeks. Patient states on November she slipped on a dock and fell and feels she has had back pain since. Patient denies numbness, tingling or weakness and denies radicular pain to legs or arms. Patient denies fever, chills, chest pain, shortness of breath, abdominal pain, urinary symptoms, vomiting or diarrhea. Pain is worse with movement. Denies bowel or bladder incontinence or retention. 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 Patient states she lifts daily and stands on her feet for long periods of time. Patient has been taking Tylenol and Motrin with little relief of pain. Symptoms are mild in severity. Patient has not yet seen her family doctor for this complaint. - History of Current Complaint Chief Complaint: EDBackInjuryPain Stated Complaint: BACK PAIN PER PT Time Seen by Provider: 11/14/18 06:30 Hx Obtained From: Patient Hx Last Menstrual Period: November 12, 2017 Pain Intensity: 8 - Allergies/Home Medications Allergies/Adverse Reactions: Allergies Allergy/AdvReac Type Severity Reaction Status Date / Time strawberries Allergy Severe Hives Uncoded 11/14/18 06:24 coconut Allergy Hives Uncoded 11/14/18 06:24 PMH/Surg Hx/FS Hx/Imm Hx Previously Healthy: Yes Endocrine/Hematology History: Denies: Hx Anticoagulant Therapy, Hx Diabetes, Hx Thyroid Disease Cardiovascular History: Reports: Other Cardiovascular Problems/Disorders - hr irr Denies: Hx Hypertension Respiratory History: Reports: Other Respiratory Problems/Disorders - hx of previous anaphylaxis Denies: Hx Asthma, Hx Chronic Obstructive Pulmonary Disease (COPD) GI History: Denies: Hx Ulcer History: Denies: Hx Dialysis, Hx Renal Disease Sensory History: Reports: Hx Contacts or Glasses Opthamlomology History: Reports: Hx Contacts or Glasses Psychiatric History: Reports: Hx Anxiety, Hx Bipolar Disorder - Surgical History Surgery Procedure, Year, and Place: c - section 2015 Infectious Disease History: No Infectious Disease History: Denies: Hx Clostridium Difficile, Hx Hepatitis, Hx Human Immunodeficiency Virus (HIV), Hx of Known/Suspected MRSA, Hx Shingles, Hx Tuberculosis, Hx Known/ Suspected VRE, Hx Known/Suspected VRSA, History Other Infectious Disease, Traveled Outside the [place] in Last 30 Days - Family History Known Family History: Positive: Unknown, Diabetes - borderline mother, Other - negative CA, Non-Contributory - Social History Occupation: Employed Full-time Lives: With Family Alcohol Use: Occasionally Alcohol Amount: Socially Substance Use Type: Reports: None Smoking Status (MU): Light Every Day Tobacco Smoker Have You Smoked in the Last Year: No Review of Systems Constitutional: Negative Negative: Fever, Chills Cardiovascular: Negative Respiratory: Negative Positive: Nausea. Negative: Abdominal Pain, Vomiting, Diarrhea Genitourinary: Negative Negative: dysuria, discharge Positive: Other - diffuse back pain Skin: Negative Neurological: Negative Negative: Weakness, Paresthesia, Numbness All Other Systems Reviewed And Are Negative: Yes Physical Exam Triage Information Reviewed: Yes Vital Signs On Initial Exam: Initial Vitals Temp Pulse Resp BP Pulse Ox 97.9 F 74 16 120/92 99 11/14/18 06:19 11/14/18 06:19 11/14/18 06:19 11/14/18 06:19 11/14/18 06:19 Vital Signs Reviewed: Yes Appearance: Positive: Well-Appearing - Pt. sitting up in bed in NAD. SO present. Skin: Positive: Warm, Dry Head/Face: Positive: Normal Head/Face Inspection Eyes: Positive: Normal, EOMI, GEOVANNA Neck: Positive: Supple Respiratory/Lung Sounds: Positive: Clear to Auscultation, Breath Sounds Present Cardiovascular: Positive: Normal, RRR Abdomen Description: Positive: Nontender, Soft, CVA Tenderness (R), CVA Tenderness (L) Musculoskeletal: Positive: Other - 5/5 strength in bilateral LEs with flexion and extension. Neurological: Positive: Normal, CN Intact II-III Psychiatric: Positive: Affect/Mood Appropriate Diagnostics - Vital Signs Vital Signs Temp Pulse Resp BP Pulse Ox 11/14/18 06:19 97.9 F 74 16 120/92 99 - Laboratory Lab Statement: Any lab studies that have been ordered have been reviewed, and results considered in the medical decision making process. Back Pain Course/Dx - Course Course Of Treatment: Patient presenting with diffuse back pain after fall 2 weeks ago. She has no neurological deficits or evidence of cauda equina syndrome. Afebrile. Patient does have bilateral CVA tenderness. Will check urinalysis lumbar x-ray given recent fall. Lumbar x-rays unremarkable, reading per radiology. Urinalysis does show positive RBCs and WBCs. We'll treat for suspected UTI, culture pending. Patient prescriptions for Bactrim and naproxen. Advised warm compresses and heavy lifting. To follow-up with PCP. Further evaluation of pain persists. Patient understands and agrees with plan. - Diagnoses Differential Diagnosis/HQI/PQRI: Positive: Fracture, Herniated Disc, Strain, Sprain Provider Diagnoses: Suspected UTI, Back strain Discharge - Sign-Out/Discharge Documenting (check all that apply): Patient Departure Patient Received Moderate/Deep Sedation with Procedure: No - Discharge Plan Condition: Good Disposition: HOME Prescriptions: Naproxen [Naproxen 500 mg tab] 500 mg PO BID #20 tablet Sulfamethox/Trimethoprim DS* [Bactrim DS 800/160 TAB*] 1 tab PO BID #20 tab Patient Education Materials: Urinary Tract Infection in Women (ED), Low Back Strain (ED) Referrals: Krysten Paredes RN [Primary Care Provider] - Additional Instructions: Schedule a follow up appointment with PCP within one week Take medication as directed Continue warm compresses and gentle massage/stretching Avoid heavy lifting Return to ER if symptoms change or worsen - Billing Disposition and Condition Condition: GOOD Disposition: Home
[2018-11-14 07:25] LABS: Urine Appearance Cloudy; Urine Bacteria Absent (Absent); Urine Bilirubin Negative (Negative); Urine Blood 2+ (Negative); Urine Color Yellow; Urine Glucose Negative (Negative); Urine Ketones Negative (Negative); Urine Nitrite Negative (Negative); Urine Protein 1+(30 mg/dL) (Negative); Urine Red Blood Cell 3+(>10/hpf) (Absent); Urine Specific Gravity 1.016 (1.010-1.030); Urine Squamous Epithelial Cell Present (Absent); Urine Urobilinogen Negative (Negative); Urine White Blood Cell 3+(>20/hpf) (Absent)
[2018-11-14 08:03] VITALS: BP 113/80
--- NOTE | 2018-11-17 05:58 | PN ---
Progress Note - Progress Note Date of Service: 11/14/18 Note: Urine culture final grew Staphylococcus saprophyticus Patient was placed on Bactrim prior to discharge This is likely sensitive to organism Routine sensitivity testing is not advised
== END 2018-11-14 08:03 | disposition home or self-care (01) ==
LOC: ED 06:18
DX: S39.012A Strain of muscle, fascia and tendon of lower back, initial encounter (principal); W01.0XXA Fall on same level from slipping, tripping and stumbling without subsequent striking against object, initial encounter; Y92.89 Other specified places as the place of occurrence of the external cause; N39.0 Urinary tract infection, site not specified; B95.7 Other staphylococcus as the cause of diseases classified elsewhere; Z91.018 Allergy to other foods; F17.200 Nicotine dependence, unspecified, uncomplicated
CPT/HCPCS: 72110; 81003; 81015; 87086; 87088; 99282

== ENCOUNTER 2018-11-20 22:19 | Emergency (ER) | payer OTHER ==
--- OUTSIDE RECORDS SUMMARY | 2018-11-20 22:29 | XMS REPORT | Continuity of Care Document ---
:1995 External Reference #:[id number] Author Name Jose Nieto D.O. Address [address] [place] [address] Care Team Providers Name Role Phone HCP given Primary Care Physician Unavailable Payers Date Identification Numbers Payment Provider Subscriber Policy Number: [id number] [facility] Bridgette Gaytan PayID: [id number] [address] [place] [address] Problems Active Problems Provider Date Anxiety state Belkis Deng PA Onset: 06/10/2018 Restless legs Belkis Deng PA Onset: 06/10/2018 Tobacco user Belkis Deng PA Onset: 06/10/2018 Family History Date Family Member(s) Observation Comments General Parkinson's Disease grandmother Father Alcoholism Mother Asthma Mother Diabetes, Nos Mother Anxiety And Depression Mother Stroke Children 1 First Son Asthma Siblings 3 1 brother and 2 sistes First Brother Asthma First Sister Bipolar Affective Disorder Paternal Grandfather Alcoholism Maternal Grandfather Heart Problems Maternal Grandmother Diabetes, Nos Maternal Aunts Diabetes, Nos Social History Type Date Description Comments Sex Unknown Education High School Completed Education Currently Attending College Marital Status Single Lives With Son and nephew 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 Tobacco Use Reviewed: 06/10/18 Light tobacco smoker (10 or fewer cigarettes/day) ETOH Use Occassional Alcohol Recreational Drug Use Has Used Illegal Drugs In The Past Tobacco Use Reviewed: 06/10/18 Light tobacco smoker (10 or fewer cigarettes/day) Recreational Drug Use 06/10/2018 Marijuana Smoking Status Reviewed: 11/14/18 Light tobacco smoker (10 or fewer cigarettes/day) Exercise Type/Frequency Exercises sporadically Sun Exposure Does not use sunscreen Seat Belt/Car Seat Seat Belt Use - Yes Guns in Home No Smoke Alarms Yes smoke alarm Currently Active Patient is currently sexually active Contraceptive Methods Current methods include condoms Age 1st Victoria Vera 18 Years Old Additional Info Sexual preference is men Additional Info Sexual Partners 1-5 Allergies, Adverse Reactions, Alerts Description No Known Drug Allergies Medications Active Medications SIG Qnty Indications Ordering Provider Date Naproxen 1 tab twice a day Unknown 11/13/2018 500mg Tablets with food as needed for pain Gabapentin take 1 tablet by 90tabs F41.9 Vance Oliver, 07/10/2018 600mg mouth 3 times a M.D. Tablets day Alprazolam 1 tablet by mouth 90tabs F41.9 Vance Oliver, 07/10/2018 0.5mg three times a day M.D. Tablets as needed for anxiety Hydroxyzine HCL 1 tab by mouth at 30tabs G47.00 Jose Nieto, 07/10/2018 50mg bedtime as needed D.O. Tablets for insomnia Tylenol Extra 2 by mouth three Unknown 06/09/2018 Strength times a day as 500mg Tablets needed for pain History Medications Gabapentin take one capsule 90caps F41.9 Vance Oliver, 06/10/2018 - 300mg by mouth 3 times M.D. 07/10/2018 Capsules a day for anxiety Alprazolam 1 tab by mouth 90tabs F41.9 Vance Oliver, 06/10/2018 - 0.25mg three times a M.D. 07/10/2018 Tablets day as needed for anxiety Zzzquil one cap hs Unknown 06/09/2018 - 25mg Capsules 11/13/2018 Ibuprofen 200 prn Unknown 06/09/2018 - 200mg 11/13/2018 Tablets Immunizations CPT Code Status Date Vaccine Lot # [id number] Given 07/15/2014 Hep A, Ped/Adolscent, 2 Dose 81819 Given 04/22/2013 Menactra Menningitis Vaccine 73759 Given 12/08/2012 Td Immunization 65441 Given 03/08/2011 Flu, Split Virus 3Yrs 54501 Given 02/08/2009 Flu, Split Virus 3Yrs 55275 Given 07/26/2008 Gardasil HPV vaccine 16370 Given 07/26/2008 Hep A, Ped/Adolscent, 2 Dose 44639 Given 03/01/2008 Hep A, Ped/Adolscent, 2 Dose 31676 Given 03/01/2008 Gardasil HPV vaccine 64590 Given 12/26/2007 Menactra Menningitis Vaccine 38477 Given 12/26/2007 Varicella (Chicken Pox) Immunization 10507 Given 12/26/2007 Gardasil HPV vaccine 74833 Given 12/17/2005 Adacel or Boostrix, TDaP 61245 Given 01/07/2001 MMR Virus Immunization 53495 Given 01/09/2000 Poliomyelitis Immunization 21737 Given 01/09/2000 Dtap Immunization (Tripedia) (Infanrix) 04766 Given 07/27/1998 MMR Virus Immunization 93137 Given 07/27/1998 Varicella (Chicken Pox) Immunization 06025 Given 05/26/1997 Dtap Immunization (Tripedia) (Infanrix) 63867 Given 05/26/1997 Hib 4 Dose, Acthib 76534 Given 1996 Poliomyelitis Immunization 52487 Given 1996 Dtap Immunization (Tripedia) (Infanrix) 83997 Given 1996 Hib 4 Dose, Acthib 63644 Given 1996 Hep B Immunization, Ped/Adolescent To 11 Yrs 83956 Given 1996 Poliomyelitis Immunization 67146 Given 1996 Dtap Immunization (Tripedia) (Infanrix) 72671 Given 1996 Hib 4 Dose, Acthib 35208 Given 1996 Hep B Immunization, Ped/Adolescent To 11 Yrs 61054 Given 1996 Poliomyelitis Immunization 96037 Given 1996 Dtap Immunization (Tripedia) (Infanrix) 74574 Given 1996 Hib 4 Dose, Acthib 13624 Given 1996 Hep B Immunization, Ped/Adolescent To 11 Yrs Vital Signs Date Vital Result Comment 11/14/2018 4:39pm BP Systolic 108 mmHg BP Diastolic 64 mmHg Weight 188.00 lb 07/10/2018 11:50am BP Systolic 118 mmHg BP Diastolic 62 mmHg Weight 195.00 lb 06/10/2018 8:51am BP Systolic 110 mmHg BP Diastolic 70 mmHg Height 65.75 inches 5'5.75" Weight 195.00 lb BMI (Body Mass Index) 31.7 kg/m2 Procedures Date Code Description Status 11/14/2018 76000 X-Ray, Lumbar Spine Complete, Obl Completed 11/14/2018 65995 X-Ray, Thoracic Spine, Ap & Lat Completed Encounters Type Date Location Provider Dx Diagnosis Office Visit 07/10/2018 Main Office Belkis Deng PA F41.9 Anxiety disorder, 11:45a unspecified G47.00 Insomnia, unspecified F17.210 Nicotine dependence, cigarettes, uncomplicated Office Visit 06/10/2018 8:45a Main Office Belkis Deng PA Z00.01 Encounter for general adult medical exam w abnormal findings F41.9 Anxiety disorder, unspecified G25.81 Restless legs syndrome F17.210 Nicotine dependence, cigarettes, uncomplicated E66.3 Overweight Z68.31 Body mass index (BMI) 31.0-31.9, adult Plan of Treatment 11/14/2018 - Jose Nieto D.O.M54.6 Pain in thoracic ppfapY20.2 EagrlnejdyaU60.9 Anxiety disorder, pittwgzxujoH65.00 Insomnia, qnmmodiykuoL72.210 Nicotine dependence, cigarettes, jkcossyjvhdtgR81.81 Restless legs xpilajlgR87.5 Low back painComments:discussed that with compressive hyperextension type MOA she likely sprained/strained deep ligaments and back muscles 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 Discussed the importance of rest in the healing of these injuries. She has an extensive work load especially in the near future. Discussed asking for help with lifting an manual labor at this time would be ideal. She also has a 3 year old at home. She will try to get help caring for her child as well.
--- OUTSIDE RECORDS SUMMARY | 2018-11-20 22:29 | XMS REPORT | Continuity of Care Document ---
:1995 External Reference #:[id number] Author Name Jose Nieto D.O. Address [address] [place] [address] Care Team Providers Name Role Phone HCP given Primary Care Physician Unavailable Payers Date Identification Numbers Payment Provider Subscriber Policy Number: [id number] [facility] Bridgette Gaytan PayID: [id number] [address] [place] [address] Problems Active Problems Provider Date Anxiety state [...] Drug Use 06/10/2018 Marijuana Smoking Status Reviewed: 07/14/18 Light tobacco smoker (10 or fewer cigarettes/day) Exercise Type/Frequency Exercises sporadically Sun Exposure Does not use sunscreen Seat Belt/Car Seat Seat Belt Use - Yes Guns in Home No Smoke Alarms Yes smoke alarm Currently Active Patient is currently sexually active Contraceptive Methods Current methods include condoms Age 1st [employer] [place] 18 Years Old Additional Info Sexual preference [...] CPT Code Status Date Vaccine Lot # [id number] Given 07/15/2014 Hep A, Ped/Adolscent, 2 Dose 87927 Given 04/22/2013 Menactra Menningitis Vaccine 30509 Given 12/08/2012 Td Immunization 01266 Given 03/08/2011 Flu, Split Virus 3Yrs 31475 Given 02/08/2009 Flu, Split Virus 3Yrs 81613 Given 07/26/2008 Gardasil HPV vaccine 65886 Given 07/26/2008 Hep A, Ped/Adolscent, 2 Dose 24683 Given 03/01/2008 Hep A, Ped/Adolscent, 2 Dose 84816 Given 03/01/2008 Gardasil HPV vaccine 97468 Given 12/26/2007 Menactra Menningitis Vaccine 94788 Given 12/26/2007 Varicella (Chicken Pox) Immunization 07429 Given 12/26/2007 Gardasil HPV vaccine 16020 Given 12/17/2005 Adacel or Boostrix, TDaP 55308 Given 01/07/2001 MMR Virus Immunization 21354 Given 01/09/2000 Poliomyelitis Immunization 25867 Given 01/09/2000 Dtap Immunization (Tripedia) (Infanrix) 91711 Given 07/27/1998 MMR Virus Immunization 77241 Given 07/27/1998 Varicella (Chicken Pox) Immunization 14829 Given 05/26/1997 Dtap Immunization (Tripedia) (Infanrix) 29003 Given 05/26/1997 Hib 4 Dose, Acthib 93467 Given 1996 Poliomyelitis Immunization 39695 Given 1996 Dtap Immunization (Tripedia) (Infanrix) 90391 Given 1996 Hib 4 Dose, Acthib 64342 Given 1996 Hep B Immunization, Ped/Adolescent To 11 Yrs 39132 Given 1996 Poliomyelitis Immunization 36334 Given 1996 Dtap Immunization (Tripedia) (Infanrix) 64453 Given 1996 Hib 4 Dose, Acthib 94366 Given 1996 Hep B Immunization, Ped/Adolescent To 11 Yrs 56727 Given 1996 Poliomyelitis Immunization 15110 Given 1996 Dtap Immunization (Tripedia) (Infanrix) 92560 Given 1996 Hib 4 Dose, Acthib 06887 Given 1996 Hep B Immunization, Ped/Adolescent To [...] lb BMI (Body Mass Index) 31.7 kg/m2 Encounters Type Date Location Provider Dx Diagnosis [...] index (BMI) 31.0-31.9, adult Plan of Treatment 07/10/2018 - Belkis Deng, PAF41.9 Anxiety disorder, unspecifiedNew Medication: Gabapentin 600 mg - take 1 tablet by mouth 3 times a dayAlprazolam 0.5 mg - 1 tablet by mouth three times a day as needed for anxietyComments:Persistent anxiety. Will increase doses of gabapentin and alprazolam. Recheck in few weeks , sooner if needed.Follow up:f/u 1-2 months, sooner if dhvadmQ73.00 Insomnia, unspecifiedNew Medication:Hydroxyzine HCL 50 mg - 1 tab by mouth at bedtime as needed for insomniaComments:Trial hydroxyzine at bedtime. Recheck if sx not improving.F17.210 Nicotine dependence, cigarettes, uncomplicatedComments: Smoking cessation counseling <10 minutes done today.
[2018-11-20] MEDS ORDERED: Etomidate* 2 MG/ML 10 ML VIAL ONE (22:42)
[2018-11-20] MEDS ORDERED: Succinylcholine* 20 MG/ML 10 ML VIAL ONE (22:42)
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
[2018-11-20] MEDS ORDERED: NS 0.9% 1000 ML** 1,000 ML IV ONE (22:51)
[2018-11-20] MEDS ORDERED: fentaNYL* 50 MCG/ML 2 ML VIAL (100 MCG VIAL) ONE (22:53)
[2018-11-20] MEDS ORDERED: Midazolam* 1 MG/ML 5 ML VIAL (5 MG) ONE (22:53)
[2018-11-20] MEDS ORDERED: Propofol* 100 ML ONE (22:55)
[2018-11-20] MEDS ORDERED: Midazolam* 1 MG/ML 5 ML VIAL (5 MG) IV SLOW PU ONE (22:55)
[2018-11-20] MEDS ORDERED: fentaNYL* 50 MCG/ML 2 ML VIAL (100 MCG VIAL) IV SLOW PU ONE (22:55)
[2018-11-20] MEDS ORDERED: Midazolam IV for DRIP* 100 MG in NS 0.9% 100 ML* 80 ML IV SCH (23:00)
[2018-11-20] MEDS ORDERED: fentaNYL INFUSION 50 MCG/ML* 2,500 MCG/50 ML BAG IV SCH (23:00)
[2018-11-20] MEDS ORDERED: NS 0.9% 1000 ML** 1,000 ML IV SCH ×2 (23:00→23:45)
[2018-11-20] MEDS ORDERED: Succinylcholine* 20 MG/ML 10 ML VIAL IV ONE (23:14)
[2018-11-20] MEDS ORDERED: Propofol* 10 MG/ML 20 ML BTL IV PUSH ONE (23:14)
[2018-11-20] MEDS ORDERED: Etomidate* 2 MG/ML 10 ML VIAL IV ONE ×2 (23:14→23:19)
[2018-11-20 23:18] LABS: ABS Eosinophils 0.1 10^3/ul (0-0.6); ABS Monocytes 0.5 10^3/ul (0-0.8); ABS Neutrophils 3.5 10^3/ul (1.5-7.7); Hematocrit 39 % (35-47); Hemoglobin 13.2 g/dL (12.0-16.0); Mean Corpuscular HGB Conc 34 g/dL (31-36); Mean Corpuscular Hemoglobin 31 pg (27-31); Mean Corpuscular Volume 89 fL (80-97); Mean Platelet Volume 7.5 fL (7.4-10.4); Platelet Count 279 10^3/uL (150-450); Red Blood Count 4.31 10^6 /uL (3.70-4.87); Red Cell Distribution Width 14 % (10-15); White Blood Count 6.1 10^3/uL (3.5-10.8)
[2018-11-20 23:43] LABS: ALT 15 U/L (7-52); AST 17 U/L (13-39); Albumin 4.4 g/dL (3.2-5.2); Albumin/Globulin Ratio 1.6 (1-3); Alkaline Phosphatase 33 U/L (34-104); Anion Gap 8 mmol/L (2-11); BUN/Creatinine Ratio 18.2 (8-20); Blood Urea Nitrogen 18 mg/dL (6-24); CO2 Carbon Dioxide 24 mmol/L (22-32); Calcium 9.3 mg/dL (8.6-10.3); Chloride 108 mmol/L (101-111); EGFR African American 84.9 (>60); EGFR Non-African American 70.1 (>60); Globulin 2.8 g/dL (2-4); Glucose 116 mg/dL (70-100); Potassium 3.6 mmol/L (3.5-5.0); Sodium 140 mmol/L (135-145); Total Protein 7.2 g/dL (6.4-8.9)
[2018-11-20] MEDS ORDERED: Propofol* 100 ML IV SCH (23:45)
[2018-11-20 23:49] LABS: HCG Pregnancy < 0.60 mIU/mL
[2018-11-20] MEDS ORDERED: Tetan/Diph/Pertus SYR(Tdap)* 0.5 ML SYR(BOOSTRIX) use SYR IM ONE (23:49)
[2018-11-21 00:51] LABS: Urine Benzodiazepine Screen Presumptive Positive (None Detect); Urine Opiates Screen None Detected (None Detect)
[2018-11-21 02:24] VITALS: BP 115/76
== END 2018-11-21 02:41 | disposition short-term general hospital (02) ==
LOC: ED 22:19
DX: T20.29XA Burn of second degree of multiple sites of head, face, and neck, initial encounter (principal); T22.252A Burn of second degree of left shoulder, initial encounter; T22.212A Burn of second degree of left forearm, initial encounter; X15.8XXA Contact with other hot household appliances, initial encounter; Y92.9 Unspecified place or not applicable; F17.210 Nicotine dependence, cigarettes, uncomplicated; Z23 Encounter for immunization
CPT/HCPCS: 31500; 36415; 71045; 80053; 80307; 82803; 84702; 85025; 90471; 90715; 96361; 96374; 96375; 96376; 99285; J0330; J2250; J2704; J3010

== ENCOUNTER 2019-01-29 22:02 | Emergency (ER) | payer OTHER ==
[2019-01-29 23:01] LABS: ABS Lymphocytes 1.2 10^3/ul (1.0-4.8); ABS Monocytes 0.4 10^3/ul (0-0.8); ABS Neutrophils 4.3 10^3/ul (1.5-7.7); Eosinophil % 0.5 %; Hematocrit 39 % (35-47); Hemoglobin 13.4 g/dL (12.0-16.0); Lymphocyte % 19.7 %; Mean Corpuscular HGB Conc 34 g/dL (31-36); Mean Corpuscular Hemoglobin 31 pg (27-31); Mean Corpuscular Volume 91 fL (80-97); Mean Platelet Volume 7.6 fL (7.4-10.4); Nucleated Red Blood Cells % 0.1; Platelet Count 230 10^3/uL (150-450); Red Blood Count 4.29 10^6 /uL (3.70-4.87); Red Cell Distribution Width 14 % (10-15); White Blood Count 5.9 10^3/uL (3.5-10.8)
[2019-01-29] MEDS ORDERED: Ondansetron ODT TAB* 4 MG PO ONE (23:06)
[2019-01-29] MEDS ORDERED: Acetaminophen TAB* 325 MG PO ONE (23:07)
[2019-01-29 23:21] LABS: Acetaminophen < 15 mcg/mL; Alcohol < 10 mg/dL (<10); Salicylate < 2.50 mg/dL (<30)
[2019-01-29 23:30] LABS: Urine Appearance Cloudy; Urine Bacteria Absent (Absent); Urine Bilirubin Negative (Negative); Urine Blood Negative (Negative); Urine Color Yellow; Urine Glucose Negative (Negative); Urine Ketones Trace (Negative); Urine Nitrite Negative (Negative); Urine Protein 1+(30 mg/dL) (Negative); Urine Red Blood Cell Absent (Absent); Urine Specific Gravity 1.019 (1.010-1.030); Urine Squamous Epithelial Cell Present (Absent); Urine Urobilinogen Negative (Negative); Urine White Blood Cell 1+(6-10/hpf) (Absent)
[2019-01-29 23:31] LABS: ALT 11 U/L (7-52); AST 15 U/L (13-39); Albumin 4.5 g/dL (3.2-5.2); Albumin/Globulin Ratio 1.6 (1-3); Alkaline Phosphatase 36 U/L (34-104); Anion Gap 7 mmol/L (2-11); BUN/Creatinine Ratio 14.8 (8-20); Blood Urea Nitrogen 13 mg/dL (6-24); CO2 Carbon Dioxide 25 mmol/L (22-32); Calcium 9.7 mg/dL (8.6-10.3); Chloride 105 mmol/L (101-111); EGFR African American 97.2 (>60); EGFR Non-African American 80.4 (>60); Globulin 2.9 g/dL (2-4); Glucose 94 mg/dL (70-100); Potassium 4.4 mmol/L (3.5-5.0); Sodium 137 mmol/L (135-145); Total Protein 7.4 g/dL (6.4-8.9)
[2019-01-29 23:36] LABS: TSH (Thyroid Stimulating Horm) 2.57 mcIU/mL (0.34-5.60)
[2019-01-29 23:36] LABS: Urine Benzodiazepine Screen Presumptive Positive (None Detect); Urine Opiates Screen None Detected (None Detect)
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
[2019-01-30] MEDS ORDERED: Ketorolac INJ* 30 MG/ML 1 ML VIAL IM ONE (00:18)
--- NOTE | 2019-01-30 02:42 | ED ---
Progress - Progress Note Progress Note: This pt was signed out by CHERELLE Robbins, to Dr. Moe pending a mental health evaluation. Course/Dx - Course Course Of Treatment: Pt had a mental health evaluation and her case was reviewed by Dr. Downs, psychiatrist. Per mental health six pack packer, Dr. Downs cleared the patient for discharge. Patient will be discharged home. - Diagnoses Provider Diagnoses: Left arm pain, Head injury Discharge ED - Sign-Out/Discharge Documenting (check all that apply): Patient Departure - Discharge home, Receiving Sign-Out Receiving patient FROM: Kika Casas Patient Received Moderate/Deep Sedation with Procedure: No - Discharge Plan Condition: Stable Disposition: HOME Referrals: Belkis Deng PA [Primary Care Provider] - Additional Instructions: Per completion of a mental health evaluation, you are cleared for release and do not require inpatient psychiatric hospitalization at this time. Please go to nearest emergency room or call 911 if safety concerns arise or condition worsens. Important Phone Numbers: [facility] [phone] Suicide Prevention and Crisis Services........................ [phone] National Suicide Prevention Lifeline............................ [phone] (7349) [facility]....................... [phone] Alcoholics Anonymous............................................... [phone] [facility].............. [phone] [place] [employer].............................................. Substance Abuse Treatment Programs [facility] - Billing Disposition and Condition Condition: STABLE Disposition: Home - Attestation Statements Document Initiated by Bree: Yes Documenting Scribe: Laura Chavez Provider For Whom Bree is Documenting (Include Credential): Dr. Zoe Moe MD Scribe Attestation: Laura Kemp, scribed for Dr. Zoe Moe MD on 01/30/19 at 0510. Scribe Documentation Reviewed: Yes Provider Attestation: The documentation as recorded by the Laura longoria accurately reflects the service I personally performed and the decisions made by me, Dr. Zoe Moe MD Status of Scribe Document: Viewed
[2019-01-30 04:15] VITALS: BP 0/0
[2019-01-30] MEDS ORDERED: SUMAtriptan TAB* 50 MG PO PRN (04:15)
[2019-01-30] MEDS ORDERED: ALPRAZolam TAB* 0.5 MG PO PRN (04:15)
[2019-01-30] MEDS ORDERED: Gabapentin CAP(*) 300 MG PO SCH (09:00)
== END 2019-01-30 03:45 | disposition home or self-care (01) ==
LOC: ED 22:02
DX: S09.90XA Unspecified injury of head, initial encounter (principal); M79.602 Pain in left arm; X50.1XXA Overexertion from prolonged static or awkward postures, initial encounter; Y92.9 Unspecified place or not applicable; F41.9 Anxiety disorder, unspecified; F31.9 Bipolar disorder, unspecified; F17.200 Nicotine dependence, unspecified, uncomplicated; Z79.899 Other long term (current) drug therapy
CPT/HCPCS: 36415; 70450; 70486; 80053; 80307; 80320; 80329; 81003; 81015; 84443; 85025; 87086; 96372; 99285; A9270-GY; G0480

== ENCOUNTER 2019-04-10 14:03 | Emergency (ER) | payer OTHER ==
[2019-04-10 14:08] VITALS: BP 104/62
[2019-04-10 14:31] LABS: ABS Lymphocytes 1.4 10^3/ul (1.0-4.8); ABS Monocytes 0.3 10^3/ul (0-0.8); ABS Neutrophils 2.5 10^3/ul (1.5-7.7); Eosinophil % 0.7 %; Hematocrit 40 % (35-47); Hemoglobin 13.6 g/dL (12.0-16.0); Lymphocyte % 32.7 %; Mean Corpuscular HGB Conc 34 g/dL (31-36); Mean Corpuscular Hemoglobin 32 pg (27-31); Mean Corpuscular Volume 92 fL (80-97); Mean Platelet Volume 7.5 fL (7.4-10.4); Nucleated Red Blood Cells % 0.1; Platelet Count 216 10^3/uL (150-450); Red Blood Count 4.33 10^6 /uL (3.70-4.87); Red Cell Distribution Width 15 % (10-15); White Blood Count 4.4 10^3/uL (3.5-10.8)
[2019-04-10 14:41] LABS: Activated Partial Thrombo Time 31.5 seconds (26.0-38.0); INR 1.09 (0.82-1.09)
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
[2019-04-10 14:56] LABS: ALT 15 U/L (7-52); AST 16 U/L (13-39); Albumin 4.3 g/dL (3.2-5.2); Albumin/Globulin Ratio 1.5 (1-3); Alkaline Phosphatase 28 U/L (34-104); Anion Gap 5 mmol/L (2-11); Blood Urea Nitrogen 15 mg/dL (6-24); C Reactive Protein < 1.00 mg/L (<8.01); CO2 Carbon Dioxide 27 mmol/L (22-32); Calcium 9.8 mg/dL (8.6-10.3); Chloride 105 mmol/L (101-111); EGFR African American 109.1 (>60); EGFR Non-African American 90.2 (>60); Globulin 2.9 g/dL (2-4); Glucose 90 mg/dL (70-100); Potassium 3.6 mmol/L (3.5-5.0); Sodium 137 mmol/L (135-145); Total Protein 7.2 g/dL (6.4-8.9)
--- OUTSIDE RECORDS SUMMARY | 2019-04-10 14:56 | XMS REPORT ---
:1995 Author Name Lia Stephen Address [address] [address] Care Team Providers Name Role Phone Lia Stephen Unavailable Unavailable Allergies, Adverse Reactions, Alerts Allergy Code CodeSystem Reaction Severity Status Substance RxNorm Medications Medication Medication Medication Start Route Dose Status Fill Code CodeSystem Date Instructions RxNorm NoCurrentDosage Active NoCurrentFrequency Hospital Discharge Medications Medication Direction Start Date Status Indications Fill Instuctions No Discharge Medication Problems Problem Name Code CodeSystem Start Date End Date Status SNOMED-CT 2018-07-25 Active Laboratory Values/Results Test Test Code Code System Actual Result Date LOINC Procedures Procedure Name Code CodeSystem Target Site Date of Procedure SNOMED-CT () 2018-10-21 SNOMED-CT () 2018-11-04 SNOMED-CT () 2018-11-18 Encounter Diagnosis Code CodeSystem Description Date Finding Finding Status Code 13895 CPT Psychotherapy - 2018-11-03 - Active Individual 30 min 6 SNOMED-CT Vital Signs Vitals Date Value Immunizations Vaccine Name Vaccine Code CodeSystem Date Status Social History Element Description Start Date End Date Code CodeSystem Description SNOMED-CT Hospital Discharge Instructions Reason For Referral
--- OUTSIDE RECORDS SUMMARY | 2019-04-10 14:56 | XMS REPORT | Continuity of Care Document ---
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 Problems Active Problems Provider Date Anxiety state Belkis Deng PA Onset: 06/10/2018 Restless legs Belkis Deng PA Onset: 06/10/2018 Tobacco user Belkis Deng PA Onset: 06/10/2018 Social History Type Date Description Comments Sex Unknown Tobacco Use Reviewed: 06/10/18 Light tobacco smoker (10 or fewer cigarettes/day) ETOH Use Occassional Alcohol Recreational Drug Use Has Used Illegal Drugs In The Past Tobacco Use Reviewed: 06/10/18 Light tobacco smoker (10 or fewer cigarettes/day) Recreational Drug Use 06/10/2018 Marijuana Smoking Status Reviewed: 03/01/19 Light tobacco smoker (10 or fewer cigarettes/day) Exercise Type/Frequency Exercises sporadically Sun Exposure Does not use sunscreen Seat Belt/Car Seat Seat Belt Use - Yes Guns in Home No Smoke Alarms Yes smoke alarm Allergies, Adverse Reactions, Alerts Description No Known Drug Allergies Medications Active Medications SIG Qnty Indications Ordering Date Provider Hydrocodone-Acetaminoph 1 tablet by mouth 21tabs M25.512 Benito, 2018 en up to every 8 Jairon Woodard 5-325mg Tablets hours as needed for pain PT For Left Shoulder evaluate and M25.512 Radhacojulio, 02/04/2019 Pain treat, modalities aJiron Woodard as needed, instruct in hep Cyclobenzaprine HCL 1 tab po up to 30tabs M54.2 Radhacojulio, 01/30/2019 10mg three times a day Jairon Woodard Tablets as needed for left shoulder pain M25.512 Sumatriptan Succinate 1 tab by mouth at 9tabs G43.009 Vance Oliver, onset of migraine, M.D. 50mg Tablets may repeat x1 after 2 hours if needed Naproxen 1 tab twice a day Unknown 11/13/2018 500mg Tablets with food as needed for pain Gabapentin Take 1 Tablet By 90tabs F41.9 Vance Oliver, 07/10/2018 600mg Tablets Mouth Three Times M.D. Daily Alprazolam 1 tablet by mouth 90tabs F41.9 Vance Oliver, 07/10/2018 0.5mg Tablets three times a day M.D. as needed for anxiety Hydroxyzine HCL 1 tab by mouth at 30tabs G47.00 Vance Oliver, 2018 50mg bedtime as needed M.D. Tablets for insomnia Tylenol Extra Strength 2 by mouth three Unknown 06/09/2018 times a day as 500mg Tablets needed for pain Medications Administered in Office Medication SIG Qnty Indications Ordering Provider Date Toradol 15MG. Belkis Deng PA 01/22/2019 Injection SC/Im Injections Belkis Deng PA 01/22/2019 Injection Immunizations CPT Code Status Date Vaccine Lot # 29810 Given 02/24/2019 Influenza Virus Vaccine, Quadrivalent, Split, 24PP4 Preservative Free 57224 Given 07/15/2014 Hep A, Ped/Adolscent, 2 Dose 37344 Given 04/22/2013 Menactra Menningitis Vaccine 38245 Given 12/08/2012 Td Immunization 33854 Given 03/08/2011 Flu, Split Virus 3Yrs 22847 Given 02/08/2009 Flu, Split Virus 3Yrs 74597 Given 07/26/2008 Gardasil HPV vaccine 93924 Given 07/26/2008 Hep A, Ped/Adolscent, 2 Dose 58822 Given 03/01/2008 Gardasil HPV vaccine 98480 Given 03/01/2008 Hep A, Ped/Adolscent, 2 Dose 37683 Given 12/26/2007 Menactra Menningitis Vaccine 69539 Given 12/26/2007 Varicella (Chicken Pox) Immunization 75985 Given 12/26/2007 Gardasil HPV vaccine 62382 Given 12/17/2005 Adacel or Boostrix, TDaP 55483 Given 01/07/2001 MMR Virus Immunization 35980 Given 01/09/2000 Dtap Immunization (Tripedia) (Infanrix) 42896 Given 01/09/2000 Poliomyelitis Immunization 62498 Given 07/27/1998 Varicella (Chicken Pox) Immunization 66706 Given 07/27/1998 MMR Virus Immunization 51217 Given 05/26/1997 Dtap Immunization (Tripedia) (Infanrix) 31230 Given 05/26/1997 Hib 4 Dose, Acthib 10991 Given 1996 Poliomyelitis Immunization 28198 Given 1996 Dtap Immunization (Tripedia) (Infanrix) 90849 Given 1996 Hib 4 Dose, Acthib 98790 Given 1996 Hib 4 Dose, Acthib 92817 Given 1996 Dtap Immunization (Tripedia) (Infanrix) 22615 Given 1996 Poliomyelitis Immunization 70201 Given 1996 Hep B Immunization, Ped/Adolescent To 11 Yrs 95146 Given 1996 Hep B Immunization, Ped/Adolescent To 11 Yrs 60525 Given 1996 Poliomyelitis Immunization 80396 Given 1996 Dtap Immunization (Tripedia) (Infanrix) 38401 Given 1996 Hib 4 Dose, Acthib 67051 Given 1996 Hep B Immunization, Ped/Adolescent To 11 Yrs Vital Signs Date Vital Result Comment 03/17/2019 2:13pm BP Systolic 130 mmHg BP Diastolic 80 mmHg Body Temperature 97.8 F tylenol at 12 pm Height 66.50 inches 5'6.50" Weight 170.00 lb BMI (Body Mass Index) 27.0 kg/m2 02/24/2019 4:56pm BP Systolic 112 mmHg BP Diastolic 72 mmHg Weight 181.00 lb Results Test Acquired Date Facility Test Result H/L Range Note Urine Drug 01/29/2019 [facility] Urine None Detected None SCR ED & [phone] Amphetamine Detect Pain Clinic Screen Urine Barbiturates Screen None Detected None Detect Urine Benzodiazepine Screen Presumptive Posi <SEE NOTE> Abnormal None Detect 1 Urine Cannabinoids Screen Presumptive Posi <SEE NOTE> Abnormal None Detect 2 Urine Cocaine Screen None Detected None Detect Urine Opiates Screen None Detected None Detect Urine Phencyclidine Screen None Detected None Detect 3 Comp Metabolic Panel 01/29/2019 [facility] Sodium 137 mmol/L Normal 135-145 [phone] Potassium 4.4 mmol/L Normal 3.5-5.0 Chloride 105 mmol/L Normal 101-111 Co2 Carbon Dioxide 25 mmol/L Normal 22-32 Anion Gap 7 mmol/L Normal 2-11 Glucose 94 mg/dL Normal 70-100 Blood Urea Nitrogen 13 mg/dL Normal 6-24 Creatinine 0.88 mg/dL Normal 0.51-0.95 BUN/Creatinine Ratio 14.8 Normal 8-20 Calcium 9.7 mg/dL Normal 8.6-10.3 Total Protein 7.4 g/dL Normal 6.4-8.9 Albumin 4.5 g/dL Normal 3.2-5.2 Globulin 2.9 g/dL Normal 2-4 Albumin/Globulin Ratio 1.6 Normal 1-3 Total Bilirubin 0.40 mg/dL Normal 0.2-1.0 Alkaline Phosphatase 36 U/L Normal 34-104 Alt 11 U/L Normal 7-52 Ast 15 U/L Normal 13-39 Egfr Non- 80.4 >60 Egfr 97.2 >60 4 Laboratory test finding 01/29/2019 [facility] Acetaminophen < 15 g/ mL 5 [phone] Alcohol < 10 mg/dL Normal <10 Salicylate < 2.50 mg/dL <30 TSH (Thyroid Stim Horm) 2.57 mcIU/mL Normal 0.34-5.60 CBC Auto Diff 01/29/2019 [facility] White Blood 5.9 10^3/uL Normal 3.5-10.8 [phone] Count Red Blood Count 4.29 10^6/uL Normal 3.70-4.87 Hemoglobin 13.4 g/dL Normal 12.0-16.0 Hematocrit 39 % Normal 35-47 Mean Corpuscular Volume 91 fL Normal 80-97 Mean Corpuscular Hemoglobin 31 pg Normal 27-31 Mean Corpuscular HGB Conc 34 g/dL Normal 31-36 Red Cell Distribution Width 14 % Normal 10-15 Platelet Count 230 10^3/uL Normal 150-450 Mean Platelet Volume 7.6 fL Normal 7.4-10.4 Abs Neutrophils 4.3 10^3/uL Normal 1.5-7.7 Abs Lymphocytes 1.2 10^3/uL Normal 1.0-4.8 Abs Monocytes 0.4 10^3/uL Normal 0-0.8 Abs Eosinophils 0.0 10^3/uL Normal 0-0.6 Abs Basophils 0.0 10^3/uL Normal 0-0.2 Abs Nucleated RBC 0.0 10^3/uL Granulocyte % 72.7 % Lymphocyte % 19.7 % Monocyte % 6.5 % Eosinophil % 0.5 % Basophil % 0.6 % Nucleated Red Blood Cells % 0.1 Urine Culture And 01/29/2019 [facility] Urine Culture SEE RESULT 6 Sensitivities [phone] BELOW Urine Drug SCR ED 11/21/2018 [facility] Urine None None & Pain Clinic [phone] Amphetamine Detected Detect Screen Urine Barbiturates Screen None Detected None Detect Urine Benzodiazepine Screen Presumptive Posi <SEE NOTE> Abnormal None Detect 7 Urine Cannabinoids Screen Presumptive Posi <SEE NOTE> Abnormal None Detect 8 Urine Cocaine Screen None Detected None Detect Urine Opiates Screen None Detected None Detect Urine Phencyclidine Screen None Detected None Detect 9 Arterial Blood Gas 11/20/2018 [facility] O2 Device ventilator [phone] Fio2 30 Vent Mode cmv Ventilator Volume 500 Resp Rate 15 Peep 5 PH Arterial 7.38 Normal 7.35-7.45 Pco2 Arterial 39 mmHg Normal 35-45 Po2 Arterial 131 mmHg High 80-100 O2 Saturation Arterial 100.0 % High 94.0-98.0 Base Excess Arterial -1.8 mmol/L Normal -2.0-2.0 10 Hco3 Arterial 23.5 mmol/L Normal 19-31 Comp Metabolic Panel 11/20/2018 [facility] Sodium 140 mmol/L Normal 135-145 [phone] Potassium 3.6 mmol/L Normal 3.5-5.0 Chloride 108 mmol/L Normal 101-111 Co2 Carbon Dioxide 24 mmol/L Normal 22-32 Anion Gap 8 mmol/L Normal 2-11 Glucose 116 mg/dL High 70-100 Blood Urea Nitrogen 18 mg/dL Normal 6-24 Creatinine 0.99 mg/dL High 0.51-0.95 BUN/Creatinine Ratio 18.2 Normal 8-20 Calcium 9.3 mg/dL Normal 8.6-10.3 Total Protein 7.2 g/dL Normal 6.4-8.9 Albumin 4.4 g/dL Normal 3.2-5.2 Globulin 2.8 g/dL Normal 2-4 Albumin/Globulin Ratio 1.6 Normal 1-3 Total Bilirubin 0.30 mg/dL Normal 0.2-1.0 Alkaline Phosphatase 33 U/L Low 34-104 Alt 15 U/L Normal 7-52 Ast 17 U/L Normal 13-39 Egfr Non- 70.1 >60 Egfr 84.9 >60 11 Laboratory test finding 11/20/2018 [facility] < 0.60 mIU/ mL 12 [phone] 1 Presumptive Positive Presumptive positive results are unconfirmed. 2 Presumptive Positive Presumptive positive results are unconfirmed. 3 The urine specimen was tested at the listed cutoffs: Drug class test level (ng/mL) Amphetamines 500 Barbiturates 200 Benzodiazepine metabolites 200 Cocaine metabolites 150 Cannabinoids 50 Opiates 300 Pcp 25 Specimen was received without chain of custody. Results should be used for medical purposes only. 4 Because ethnic data is not always readily available, this report includes an eGFR for both -Americans and non- Americans. The National Kidney Disease Education Program (NKDEP) does not endorse the use of the MDRD equation for patients that are not between the ages of 18 and 70, are , have extremes of body size, muscle mass, or nutritional status, or are non- or non-. According to the National Kidney Foundation, irrespective of diagnosis, the stage of the disease is based on the level of kidney function: Stage Description GFR(mL/min/1.73 m(2)) 1 Kidney damage with normal or decreased GFR 90 2 Kidney damage with mild decrease in GFR 60-89 3 Moderate decrease in GFR 30-59 4 Severe decrease in GFR 15-29 5 Kidney failure <15 (or dialysis) 5 Therapeutic concentration: <50 ug/mL Toxic concentration: >120 ug/mL 6 SEE RESULT BELOW Name: ELIAS GAYTAN : [address]: Zoe Moe MD Acct: [id number] Unit: [id number] AGE: 23 Location: ED Re01/29/19 SEX: F Status: DEP ER SPEC: [id number] MARIO: 01/29/[address] [facility] [address]: Kika VILLARREAL REQ: [id number] RECD: 01/29/19 STATUS: MIRI BRISENO DR: Zoe Deng [facility] _ SOURCE: URINE SPDESC: ORDERED: Urine Culture Procedure Result Reported Site Urine Culture Final 01/31/19907 ML No Growth (<1,000 CFU/mL) * ML - Main Lab . END OF REPORT DEPARTMENT OF PATHOLOGY, [address] [place] [address] Michel Alexander M.D. Director [facility] # [id number] 7 Presumptive Positive Presumptive positive results are unconfirmed. 8 Presumptive Positive Presumptive positive results are unconfirmed. 9 The urine specimen was tested at the listed cutoffs: Drug class test level (ng/mL) Amphetamines 500 Barbiturates 200 Benzodiazepine metabolites 200 Cocaine metabolites 150 Cannabinoids 50 Opiates 300 Pcp 25 Specimen was received without chain of custody. Results should be used for medical purposes only. 10 Reference ranges based on room air. 11 Because ethnic data is not always readily available, this report includes an eGFR for both -Americans and non- Americans. The National Kidney Disease Education Program (NKDEP) does not endorse the use of the MDRD equation for patients that are not between the ages of 18 and 70, are , have extremes of body size, muscle mass, or nutritional status, or are non- or non-. According to the National Kidney Foundation, irrespective of diagnosis, the stage of the disease is based on the level of kidney function: Stage Description GFR(mL/min/1.73 m(2)) 1 Kidney damage with normal or decreased GFR 90 2 Kidney damage with mild decrease in GFR 60-89 3 Moderate decrease in GFR 30-59 4 Severe decrease in GFR 15-29 5 Kidney failure <15 (or dialysis) 12 <5.0 Negative 5.0 - 25.0 Indeterminate (Repeat testing recommended after 72 hours) >25.0 Positive Perimenopausal women can display HCG levels of up to 20 mIU/mL Procedures Date Code Description Status 01/22/2019 90832 SC/Im Injections Completed 11/14/2018 79114 X-Ray, Lumbar Spine Complete, Obl Completed 11/14/2018 64957 X-Ray, Thoracic Spine, Ap & Lat Completed Medical Devices Description No Information Available Encounters Type Date Location Provider Dx Diagnosis Office Visit 02/24/2019 Main Office Belkis Deng PA M25.512 Pain in left 4:50p shoulder Z23 Encounter for immunization M70.812 Oth soft tissue disord related to use/pressure, l shoulder Office Visit 02/04/2019 11:15a Main Office Vance Oliver M25.512 Pain in left M.D. shoulder S40.022D Contusion of left upper arm, subsequent encounter Office Visit 01/30/2019 4:20p Main Office Natalie Ponce, M25.512 Pain in left P.A. shoulder M54.2 Cervicalgia M79.601 Pain in right arm S46.812A Strain of musc/fasc/tend at shldr/up arm, left arm, init Office Visit 01/22/2019 3:15p Main Office Belkis Deng, G43.009 Migraine w/o aura, PA not intractable, w/o status migrainosus Office Visit 11/14/2018 4:30p Main Office Jose Nieto, M54.6 Pain in thoracic D.O. spine M54.2 Cervicalgia F41.9 Anxiety disorder, unspecified G47.00 Insomnia, unspecified F17.210 Nicotine dependence, cigarettes, uncomplicated G25.81 Restless legs syndrome M54.5 Low back pain S29.012A Strain of muscle and tendon of back wall of thorax, init S39.012A Strain of muscle, fascia and tendon of lower back, init W21.4xxA Striking against diving board, initial encounter Assessments Date Code Description Provider 03/17/2019 Z68.27 Body mass index (BMI) 27.0-27.9, adult Vance Oliver M.D. 02/24/2019 M25.512 Pain in left shoulder Belkis Deng PA 02/24/2019 Z23 Encounter for immunization Belkis Deng PA 02/24/2019 M70.812 Other soft tissue disorders related to use, Belkis Deng PA overuse and pressure, left shoulder 02/04/2019 M25.512 Pain in left shoulder Vance Oliver M.D. 02/04/2019 S40.022D Contusion of left upper arm, subsequent Vance Oliver M.D. encounter 01/30/2019 M25.512 Pain in left shoulder Natalie Lehman P.A. 01/30/2019 M54.2 Cervicalgia Natalie Lehman P.A. 01/30/2019 M79.601 Pain in right arm Natalie Lehman P.A. 01/30/2019 S46.812A Strain of other muscles, fascia and tendons Natalie Lehman P.AJairo at shoulder and upper arm level, left arm, initial encounter 01/22/2019 G43.009 Migraine without aura, not intractable, Belkis Deng, CHERELLE without status migrainosus 11/14/2018 M54.6 Pain in thoracic spine Jose Nieto D.O. 11/14/2018 M54.2 Cervicalgia Jose Nieto D.O. 11/14/2018 F41.9 Anxiety disorder, unspecified Jose Nieto D.O. 11/14/2018 G47.00 Insomnia, unspecified Jose Nieto D.O. 11/14/2018 F17.210 Nicotine dependence, cigarettes, Jose Nieto D.O. uncomplicated 11/14/2018 G25.81 Restless legs syndrome Jose Nieto D.O. 11/14/2018 M54.5 Low back pain Jose Nieto D.O. 11/14/2018 S29.012A Strain of muscle and tendon of back wall of Jose Nieto D.O. thorax, initial 11/14/2018 S39.012A Strain of muscle, fascia and tendon of Jose Nieto D.O. lower back, initial e 11/14/2018 W21.4xxA Striking against diving board, initial Jose Nieto D.O. encounter Plan of Treatment 01/30/2019 - [place] CastañedaM25.512 Pain in left shoulderNew Medication: Cyclobenzaprine HCL 10 mg - 1 tab po up to three times a day as needed for left shoulder painFollow up:continue with 3 ibuprofen every 4 hrs, toggle with tylenol ordering US as biceps tendon, superior, possibly [id number] CervicalgiaNew Medication:Cyclobenzaprine HCL 10 mg - 1 tab po up to three times a day as needed for left shoulder painM79.601 Pain in right armS46.812A Strain of other muscles, fascia and tendons at shoulder and upper arm level, left arm, initial encounter Functional Status Description No Information Available Mental Status Description No Information Available Referrals Refer to Reason for Referral Status Appt Date [facility] She was leading some of her own calves into Sent a different paddock and the gate swung in odd way without pt realizing it and sort of pinched her shouler in the gate. Xrays were negative, done trough [facility]. Concern is for left upper arm tendon rupture. Consult Testing, Treat - Specialist [facility], [address] [place] [address] [phone]
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
--- OUTSIDE RECORDS SUMMARY | 2019-04-10 14:56 | XMS REPORT ---
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 Relevant diagnostic tests/laboratory data Narrative No Information Procedures Procedure Code CodeSystem Target Date of Status Service Device Device Device Name Site Procedure Delivery Code Name UID Location Psychother 6228093 SNOMED-CT () 2019-03-03 completed Mental apy, 45 4 [facility]- minutes [place] with [address], [id number] Psychother 2122615 SNOMED-CT () 2019-02-13 completed Mental apy, 45 4 Health- minutes [place] with [address], [id number] Psychother 1178108 SNOMED-CT () 2018-11-04 completed Mental apy, 45 4 Health- minutes [place] with [facility] patient [address] [place] [address], [id number] Psychother 6070299 SNOMED-CT () 2018-11-18 completed Mental apy, 45 4 Health- minutes [place] with [address], [id number] SNOMED-CT () 2019-02-05 completed Mental Health- [place], [id number] SNOMED-CT () 2018-10-21 completed Mental Health- [place], [id number] [phone] Encounters/Encounter Diagnoses Encounter Name Encounter Diagnosis Diagnosis Diagnosis Date of Service Code Code Name CodeSystem Diagnosis Delivery Location [facility] [address] [id number] Unspecified SNOMED-CT 2019-03-03 [facility] [address] [place], [place], [phone] Vital Signs No Information Social History Element Description Description Start End Code CodeSystem AdditionalInfo Date Date SexAssignedAtBirth Female 1994- F AdministrativeGender 0-25 Hospital Discharge Instructions Reason For Referral Medical Equipment FDA Assessments
[2019-04-10 15:00] LABS: Urine Appearance Clear; Urine Bilirubin Negative (Negative); Urine Blood Negative (Negative); Urine Color Straw; Urine Glucose Negative (Negative); Urine Ketones Negative (Negative); Urine Nitrite Negative (Negative); Urine Protein Negative (Negative); Urine Specific Gravity 1.006 (1.010-1.030); Urine Urobilinogen Negative (Negative)
[2019-04-10] MEDS ORDERED: Metoclopramide IV* 5 MG/ML 2 ML VIAL IV SLOW PU ONE (17:05)
[2019-04-10] MEDS ORDERED: Dexamethasone IV* 4 MG/ML 1 ML (4 MG) IV SLOW PU ONE (17:05)
[2019-04-10] MEDS ORDERED: Magnesium Sulfate IV* 0.5 GM/ML 2 ML VIAL (1 GM) IVPB ONE (17:05)
[2019-04-10] MEDS: Magnesium Sulfate 2 GM IV (Premix) IVPB ONE ×2 (17:23→18:18)
== END 2019-04-10 18:02 | disposition left against medical advice (07) ==
LOC: ED 14:03
DX: R51 Headache (principal); F41.9 Anxiety disorder, unspecified; F31.9 Bipolar disorder, unspecified; F17.200 Nicotine dependence, unspecified, uncomplicated
CPT/HCPCS: 36415; 70450; 80053; 81003; 83605; 84484; 85025; 85610; 85730; 86140; 96374; 96375; 99282; J1100; J2765; J3475

== ENCOUNTER 2019-05-23 12:59 | Emergency (ER) | payer OTHER ==
[2019-05-23] MEDS ORDERED: levETIRAcetam 1000MG IVPREMIX* 1,000 MG/100 ML BAG IVPB ONE (13:04)
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
[2019-05-23 13:28] LABS: ABS Eosinophils 0.1 10^3/ul (0-0.6); ABS Lymphocytes 1.3 10^3/ul (1.0-4.8); ABS Monocytes 0.4 10^3/ul (0-0.8); ABS Neutrophils 2.3 10^3/ul (1.5-7.7); Eosinophil % 2.2 %; Hematocrit 37 % (35-47); Hemoglobin 12.7 g/dL (12.0-16.0); Lymphocyte % 31.2 %; Mean Corpuscular HGB Conc 35 g/dL (31-36); Mean Corpuscular Hemoglobin 32 pg (27-31); Mean Corpuscular Volume 91 fL (80-97); Mean Platelet Volume 7.2 fL (7.4-10.4); Platelet Count 226 10^3/uL (150-450); Red Blood Count 4.04 10^6 /uL (3.70-4.87); Red Cell Distribution Width 14 % (10-15); White Blood Count 4.1 10^3/uL (3.5-10.8)
[2019-05-23 13:47] LABS: ALT 24 U/L (7-52); AST 21 U/L (13-39); Albumin 4.1 g/dL (3.2-5.2); Albumin/Globulin Ratio 1.6 (1-3); Alkaline Phosphatase 35 U/L (34-104); Anion Gap 5 mmol/L (2-11); BUN/Creatinine Ratio 31.3 (8-20); Blood Urea Nitrogen 26 mg/dL (6-24); CO2 Carbon Dioxide 27 mmol/L (22-32); Calcium 9.1 mg/dL (8.6-10.3); Chloride 108 mmol/L (101-111); EGFR African American 103.1 (>60); EGFR Non-African American 85.2 (>60); Globulin 2.6 g/dL (2-4); Glucose 79 mg/dL (70-100); Potassium 3.9 mmol/L (3.5-5.0); Sodium 140 mmol/L (135-145); Total Protein 6.7 g/dL (6.4-8.9)
[2019-05-23 13:54] LABS: HCG Pregnancy < 0.60 mIU/mL
[2019-05-23 18:48] LABS: Acetaminophen < 15 mcg/mL
[2019-05-23 23:26] VITALS: BP 107/80
== END 2019-05-23 19:15 | disposition home or self-care (01) ==
LOC: ED 12:59
DX: R56.9 Unspecified convulsions (principal); R41.82 Altered mental status, unspecified; Z87.820 Personal history of traumatic brain injury; Z91.018 Allergy to other foods; Z87.891 Personal history of nicotine dependence
CPT/HCPCS: 36415; 80053; 80329; 84702; 85025; 96365; 96366; 99284; G0480; J1953

== ENCOUNTER 2020-08-28 15:15 | Inpatient (IN) ==
[2020-08-28] MEDS ORDERED: ceFAZolin 2 GM PREMIX 2 GM/50 ML BAG ONE (16:15)
[2020-08-28] MEDS ORDERED: Sodium Citrate/Citric Acid LIQ 15 ML UDC ONE (16:36)
[2020-08-28 17:24] LABS: Hematocrit 30 % (35-47); Hemoglobin 9.7 g/dL (12.0-16.0); Mean Corpuscular HGB Conc 33 g/dL (31-36); Mean Corpuscular Hemoglobin 28 pg (27-31); Mean Corpuscular Volume 83 fL (80-97); Mean Platelet Volume 8.1 fL (7.4-10.4); Platelet Count 328 10^3/uL (150-450); Red Blood Count 3.55 10^6 /uL (3.70-4.87); Red Cell Distribution Width 16 % (10-15); White Blood Count 8.3 10^3/uL (3.5-10.8)
[2020-08-28 18:21] LABS: ABS Lymphocytes 1.3 10^3/ul (1.0-4.8); ABS Monocytes 0.4 10^3/ul (0-0.8); ABS Neutrophils 6.5 10^3/ul (1.5-7.7); Eosinophil % 0.3 %
[2020-08-28] MEDS ORDERED: Naloxone 0.4 mg VIAL 0.4 mg/ml 1 ml VIAL IV PRN ×2 (19:07→20:24)
[2020-08-28] MEDS ORDERED: Prochlorperazine 5 mg/ml 2 ml VIAL (10 mg) IV PRN ×2 (19:07→20:24)
[2020-08-28] MEDS ORDERED: fentaNYL 100 mcg/2 ml 50 MCG/ML VIAL IV PRN (19:07)
[2020-08-28] MEDS ORDERED: diPHENhydraMINE IV 50 MG/ML 1 ml VIAL (BENADRYL) IV PRN ×2 (19:07→20:24)
[2020-08-28] MEDS ORDERED: Dexamethasone IV 4 MG/ML VIAL 1 ml VIAL ONE (19:13)
[2020-08-28] MEDS ORDERED: Morphine PF AMP (0.5MG/ML) 5 MG/10 ML AMP ONE (19:13)
[2020-08-28] MEDS ORDERED: Ondansetron 4 mg VIAL 2 MG/ML 2 ml VIAL ONE (19:13)
[2020-08-28] MEDS ORDERED: Oxytocin 10 UNITS/ML 1 ML VIAL ONE (19:13)
[2020-08-28 19:30] LABS: Urine Benzodiazepine Screen None Detected (None Detect); Urine Cannabinoids Screen Presumptive Positive (None Detect); Urine Opiates Screen None Detected (None Detect)
[2020-08-28] MEDS ORDERED: ceFOXitin 2 GM IVPREMIX 2 GM/50 ML BAG IVPB ONE (19:43)
[2020-08-28] MEDS ORDERED: Ondansetron 4 mg VIAL 2 MG/ML 2 ml VIAL IV PRN (20:24)
[2020-08-28] MEDS ORDERED: Witch Hazel PAD JAR TOPICAL PRN (21:19)
[2020-08-28] MEDS ORDERED: Measles, Mumps,Rubella VACC 0.5 ML/VIAL SUBCUT ONE (21:22)
[2020-08-28] MEDS ORDERED: Lactated Ringers 1000 ml BAG 1,000 ML IV SCH (22:00)
[2020-08-29 07:14] LABS: ABS Lymphocytes 0.8 10^3/ul (1.0-4.8); ABS Monocytes 0.5 10^3/ul (0-0.8); Eosinophil % 0.1 %; Hematocrit 30 % (35-47); Hemoglobin 9.9 g/dL (12.0-16.0); Mean Corpuscular HGB Conc 33 g/dL (31-36); Mean Corpuscular Hemoglobin 28 pg (27-31); Mean Corpuscular Volume 83 fL (80-97); Mean Platelet Volume 8.1 fL (7.4-10.4); Platelet Count 297 10^3/uL (150-450); Red Blood Count 3.56 10^6 /uL (3.70-4.87); Red Cell Distribution Width 16 % (10-15); White Blood Count 11.3 10^3/uL (3.5-10.8)
[2020-08-29] MEDS ORDERED: Calcium Carb (TUMS) 500 mg CHEW TAB PO PRN (14:21)
[2020-08-29] MEDS ORDERED: Calcium Carb (TUMS) 500 mg CHEW TAB ONE (14:22)
[2020-08-30 07:45] VITALS: BP 112/69
== END 2020-08-30 19:05 | disposition home or self-care (01) | DRG 540 ==
LOC: MCHOBOUT 15:15 → MCHOB 16:14
PROVIDERS: ADMIT Obstetrics & Gynecology; ATTEND Obstetrics & Gynecology

== ENCOUNTER 2022-04-09 05:22 | Inpatient (IN) ==
[2022-04-09 06:49] LABS: ABS Lymphocytes 0.9 10^3/ul (1.0-4.8); ABS Monocytes 0.4 10^3/ul (0-0.8); ABS Neutrophils 3.7 10^3/ul (1.5-7.7); Eosinophil % 0.3 %; Hematocrit 24 % (35-47); Hemoglobin 7.7 g/dL (12.0-16.0); Lymphocyte % 17.8 %; Mean Corpuscular HGB Conc 32 g/dL (31-36); Mean Corpuscular Hemoglobin 24 pg (27-31); Mean Corpuscular Volume 76 fL (80-97); Mean Platelet Volume 8.9 fL (7.4-10.4); Nucleated Red Blood Cells % 0.1; Platelet Count 171 10^3/uL (150-450); Red Blood Count 3.19 10^6 /uL (3.70-4.87); Red Cell Distribution Width 17 % (10-15); White Blood Count 4.9 10^3/uL (3.5-10.8)
[2022-04-09] MEDS ORDERED: ceFOXitin 2 GM PREMIX 50 ML IVPB ONE (07:00)
[2022-04-09] MEDS ORDERED: Sodium Citrate/Citric Acid LIQ 15 ML UDC PO ONE (07:21)
[2022-04-09] MEDS ORDERED: Naloxone 0.4 mg VIAL 0.4 mg/ml 1 ml VIAL IV PUSH PRN (07:22)
[2022-04-09] MEDS ORDERED: Metoclopramide 5 MG/ML VIAL (10 mg) IV PRN (07:22)
[2022-04-09] MEDS ORDERED: Acetaminophen IV 1 GM/100ML 1,000 MG/100 ML BAG IV PRN (07:22)
[2022-04-09] MEDS ORDERED: Ondansetron 4 mg VIAL 2 MG/ML 2 ml VIAL IV PRN (07:22)
[2022-04-09 07:28] LABS: Hematocrit 24 % (35-47); Hemoglobin 7.7 g/dL (12.0-16.0)
[2022-04-09] MEDS ORDERED: Ondansetron 4 mg VIAL 2 MG/ML 2 ml VIAL ONE (07:57)
[2022-04-09] MEDS ORDERED: Dexamethasone IV 4 MG/ML VIAL 1 ml VIAL ONE (07:57)
[2022-04-09] MEDS ORDERED: Oxytocin 10 UNITS/ML 1 ML VIAL ONE (07:57)
[2022-04-09] MEDS ORDERED: Morphine PF AMP (0.5MG/ML) 5 MG/10 ML AMP ONE (08:02)
[2022-04-09 10:50] LABS: Urine Appearance Clear; Urine Bilirubin Negative (Negative); Urine Blood Negative (Negative); Urine Color Straw; Urine Glucose Negative (Negative); Urine Ketones Trace (Negative); Urine Nitrite Negative (Negative); Urine Protein Negative (Negative); Urine Specific Gravity 1.006 (1.002-1.030); Urine Urobilinogen Negative (Negative)
[2022-04-09] MEDS ORDERED: Glycerin ADULT 2.4 gm SUPP PR PRN (11:52)
[2022-04-09] MEDS ORDERED: Witch Hazel PAD JAR TOPICAL PRN (11:52)
[2022-04-09] MEDS ORDERED: Lactated Ringers 1000 ml BAG 1,000 ML IV SCH (12:00)
[2022-04-09] MEDS ORDERED: Oxytocin in LR 20,000 MILLI.UNIT/1,000 ML BAG IV SCH (12:00)
[2022-04-09] MEDS: Nicotine PATCH 7 MG/24 HR PATCH TRANSDERM SCH ×2 (13:03→14:42)
[2022-04-09 18:50] LABS: Urine Benzodiazepine Screen None Detected (None Detect); Urine Cannabinoids Screen Presumptive Positive (None Detect); Urine Opiates Screen None Detected (None Detect)
[2022-04-10 06:43] LABS: ABS Lymphocytes 1.1 10^3/ul (1.0-4.8); ABS Monocytes 0.5 10^3/ul (0-0.8); ABS Neutrophils 4.7 10^3/ul (1.5-7.7); Eosinophil % 0.2 %; Hematocrit 24 % (35-47); Hemoglobin 7.9 g/dL (12.0-16.0); Mean Corpuscular HGB Conc 33 g/dL (31-36); Mean Corpuscular Hemoglobin 25 pg (27-31); Mean Corpuscular Volume 77 fL (80-97); Mean Platelet Volume 8.3 fL (7.4-10.4); Nucleated Red Blood Cells % 0.1; Platelet Count 211 10^3/uL (150-450); Red Blood Count 3.16 10^6 /uL (3.70-4.87); Red Cell Distribution Width 18 % (10-15); White Blood Count 6.2 10^3/uL (3.5-10.8)
[2022-04-10] MEDS: Nicotine PATCH 7 MG/24 HR PATCH TRANSDERM SCH (20:38)
[2022-04-11 07:35] VITALS: BP 135/77
[2022-04-11] MEDS: Nicotine PATCH 7 MG/24 HR PATCH TRANSDERM SCH (09:51)
[2022-04-11] MEDS ORDERED: Tetan/Diph/Pertus SYR(Tdap) 0.5 ML SYR(BOOSTRIX) use SYR contains LATEX IM ONE (10:07)
== END 2022-04-11 11:40 | disposition home or self-care (01) | DRG 540 ==
LOC: MCHOB 05:22
PROVIDERS: ADMIT Obstetrics & Gynecology; ATTEND Obstetrics & Gynecology